=== PATIENT | female | born 1955 | race Caucasian/White ===

== ENCOUNTER 2017-02-25 12:38 | Emergency (ER) | payer SELFPAY, OTHER | END 2017-02-25 15:00 | disposition left against medical advice (07) | LOC: E/R 15:00 | DX: Z53.21 Procedure and treatment not carried out due to patient leaving prior to being seen by health care provider (principal) ==

== ENCOUNTER 2017-04-16 18:07 | Inpatient (IN) | payer OTHER ==
[2017-04-16 22:21] LABS: WHITE BLOOD COUNT 7.2 10^3/ul (4.8-10.8)
[2017-04-16 22:21] LABS: ABNORMAL IP MESSAGE 1; HEMATOCRIT 38.1 % (37.0-47.0); HEMOGLOBIN 12.2 g/dl (12.0-16.0); MEAN CORPUSCULAR VOLUME 90.5 fl (82.0-101.0); NUCLEATED RED BLOOD CELLS% 0.3 /100WBC (0.0-0.0); PLATELET COUNT 287 10^3/UL (140-415); RED BLOOD COUNT 4.21 10^6/ul (4.20-5.40); RED CELL DISTRIBUTION WIDTH 17.3 % (11.5-14.5)
[2017-04-16 22:27] LABS: ADD MAN DIFF? YES; POSITIVE DIFF @See below
[2017-04-16 22:41] LABS: INR 1.25; PROTIME 15.9 Sec (11.9-14.9); PT RATIO 1.2
[2017-04-16 22:42] LABS: PARTIAL THROMBOPLASTIN TIME 44.7 Sec (25.0-35.0)
[2017-04-16 22:57] LABS: ALANINE AMINOTRANSFERASE 7 IU/L (13-69); ALBUMIN 3.4 g/dl (3.3-4.9); ALBUMIN/GLOBULIN RATIO 0.69; ALKALINE PHOSPHATASE 136 IU/L (42-121); ANION GAP 22 (8-16); ASPARTATE AMINO TRANSFERASE 22 IU/L (15-46); BLOOD UREA NITROGEN 44 mg/dl (7-20); CALCIUM 9.4 mg/dl (8.4-10.2); CARBON DIOXIDE 24 mmol/L (21-31); CHLORIDE 100 mmol/L (97-110); CREATININE 6.27 mg/dl (0.44-1.00); GLUCOSE 126 mg/dl (70-220); POTASSIUM 4.5 mmol/L (3.5-5.1); SODIUM 141 mmol/L (135-144); TOTAL PROTEIN 8.3 g/dl (6.1-8.1)
[2017-04-16 23:12] LABS: ANISOCYTOSIS 2+ (0-0); GIANT THROMBO% (M) 1 % (0-0); LYMPHOCYTES #M 4.4 10^3/ul (0.8-2.9); LYMPHOCYTES % (M) 62 % (15-51); MONOCYTE #M 1.6 10^3/ul (0.3-0.9); MONOCYTES % (M) 23 % (0-11); PLATELET MORPHOLOGY COMMENT @See below; REACTIVE LYMPHOCYTES #M 0.7 10^3/ul (0.0-0.0); REACTIVE LYMPHOCYTES% (M) 11 % (0-0); SEGMENTED NEUTROPHILS (M) % 4 % (39-77); SMUDGE%M 8 % (0-0)
[2017-04-17 00:56] LABS: LACTIC ACID 1.6 mmol/L (0.5-2.0)
[2017-04-17] MEDS: CEFEPIME 2GM/50 ML (PMX) 50 ML IVPB (01:16)
[2017-04-17] MEDS: SODIUM CHLORIDE 0.9% 1L BAG IV* (01:24)
[2017-04-17] MEDS: VANCOMYCIN 1 GM (PMX) 250 ML IVPB (01:59)
[2017-04-17] MEDS ORDERED: NACL 0.9% 3 ML SYG IV (02:30)
[2017-04-17] MEDS ORDERED: ACETAMINOPHEN 325 MG TAB PO (02:30)
[2017-04-17] MEDS ORDERED: ALBUTEROL/IPRATROPIUM (NEB) 3 ML AMP HHN (02:30)
[2017-04-17] MEDS: HYDROCODONE/APAP (5/325) TAB PO (03:22)
[2017-04-17] MEDS: ONDANSETRON 4 MG INJ IV (03:22)
[2017-04-17] MEDS: morphine 2 MG INJ IV (03:23)
[2017-04-17] MEDS ORDERED: PANTOPRAZOLE (EC) 40 MG TAB PO (06:00)
[2017-04-17] MEDS ORDERED: FOLIC ACID 1 MG TAB PO (09:00)
[2017-04-17] MEDS ORDERED: CEFEPIME 1GM/50 ML (PMX) 50 ML IVPB (09:00)
[2017-04-17] MEDS ORDERED: NON-FORMULARY/PATIENT OWN MED (Omeprazole* 20 MG) PO (09:00)
[2017-04-17] MEDS ORDERED: VANCOMYCIN IV PER PHARMACY XX (09:00)
[2017-04-17] MEDS ORDERED: MAGNESIUM OXIDE 400 MG TAB PO (09:00)
[2017-04-17] MEDS ORDERED: MULTIVITAMINS THERAPEUTIC TAB PO (09:00)
[2017-04-17] MEDS ORDERED: ESCITALOPRAM 10 MG TAB PO (09:00)
[2017-04-17] MEDS ORDERED: FERROUS SULFATE (EC) 325 MG TAB PO (09:00)
[2017-04-17] MEDS ORDERED: HEPARIN 5,000 UNIT/0.5 ML VIAL SC (09:00)
[2017-04-17] MEDS ORDERED: METOPROLOL 25 MG TAB PO (09:00)
== END 2017-04-17 03:45 | disposition left against medical advice (07) | DRG 603 ==
LOC: E/R 04-17 03:45 → MS1 04-17 02:06 → E/R 18:07
DX: L08.9 Local infection of the skin and subcutaneous tissue, unspecified (principal); I50.9 Heart failure, unspecified; F17.200 Nicotine dependence, unspecified, uncomplicated; N18.9 Chronic kidney disease, unspecified; G89.4 Chronic pain syndrome
CPT/HCPCS: 71045; 80053; 83605; 84484; 85025; 85610; 85730; 87040; 93005; 96374; 96375; 99291-25

== ENCOUNTER 2017-07-26 07:51 | Inpatient (IN) | payer MEDICARE, OTHER ==
[~2017-07-26 07:51] MED LIST: ETOMIDATE 20 MG INJ; SUCCINYLCHOLINE CHLORIDE 100 MG/5 ML SYG IV; VECURONIUM 10 MG VIAL
[2017-07-26] MEDS ORDERED: SOD CHLORIDE 0.9% 1,000 ML IV (08:08)
[2017-07-26] MEDS: MIDAZOLAM (DRIP) 50 mg/50 mL 50 ML IV (08:08)
[2017-07-26] MEDS ORDERED: LORAZEPAM 2 MG INJ (08:19)
[2017-07-26 09:20] LABS: ADD MAN DIFF? NO
[2017-07-26 09:31] LABS: ADD UMIC YES; UR ASCORBIC ACID NEGATIVE (NEGATIVE); UR BACTERIA FEW /HPF (NONE SEEN); UR BILIRUBIN (Dip) NEGATIVE (NEGATIVE); UR BLOOD (Dip) 2+ mg/dL (NEGATIVE); UR CLARITY CLOUDY (CLEAR); UR COLOR YELLOW (YELLOW); UR GLUCOSE (Dip) NEGATIVE (NEGATIVE); UR KETONES (Dip) TRACE mg/dL (NEGATIVE); UR LEUKOCYTE ESTERASE (Dip) 3+ Leu/ul (NEGATIVE); UR NITRITE (Dip) NEGATIVE (NEGATIVE); UR RBC 3 /HPF (0-5); UR SQUAMOUS EPITHELIAL CELL FEW /HPF (FEW); UR TOTAL PROTEIN (Dip) 2+ mg/dl (NEGATIVE); UR UROBILINOGEN (Dip) NEGATIVE (NEGATIVE); UR WBC 96 /HPF (0-5)
[2017-07-26] MEDS: CEFTRIAXONE 1 GM/50 ML (PMX) 50 ML IVPB (09:33)
[2017-07-26 09:43] LABS: ALANINE AMINOTRANSFERASE 24 IU/L (13-69); ALBUMIN 3.8 g/dl (3.3-4.9); ALBUMIN/GLOBULIN RATIO 0.77; ALKALINE PHOSPHATASE 152 IU/L (42-121); ANION GAP 25 (8-16); ASPARTATE AMINO TRANSFERASE 86 IU/L (15-46); BLOOD UREA NITROGEN 45 mg/dl (7-20); CALCIUM 8.6 mg/dl (8.4-10.2); CARBON DIOXIDE 25 mmol/L (21-31); CHLORIDE 102 mmol/L (97-110); CREATININE 8.55 mg/dl (0.44-1.00); GLUCOSE 168 mg/dl (70-220); LIPASE 289 U/L (23-300); POTASSIUM 4.6 mmol/L (3.5-5.1); SODIUM 147 mmol/L (135-144); TOTAL PROTEIN 8.7 g/dl (6.1-8.1)
[2017-07-26 09:51] LABS: AADO2 Arterial 372.6 mmHg (7.0-24.0); Allen Test ACCEPTAB; Arterial Base Excess -3.5 mmol/L (-3.0-3); Arterial Blood Gas Oxygen Sat 99.3 mmHG (95.0-98.0); Arterial COHb 0.2 % (0.0-3.0); Arterial HCO3 22.4 mmol/L (22.0-26.0); Arterial MetHb 0.1 % (0.0-1.5); Arterial pCO2 43.2 mmhg (35-45); MODE VENT - AC; Site LB
[2017-07-26 09:53] LABS: TROPONIN-I 0.074 ng/ml (0.000-0.120)
[2017-07-26 10:54] LABS: ABNORMAL IP MESSAGE 1; BASOPHILS % 0.9 % (0.0-2.0); HEMATOCRIT 37.6 % (37.0-47.0); LYMPHOCYTES # 0.5 10^3/ul (0.8-2.9); LYMPHOCYTES % 14.9 % (15.0-51.0); MEAN CORPUSCULAR HGB CONC 31.9 g/dl (32.0-37.0); MEAN CORPUSCULAR VOLUME 87.6 fl (82.0-101.0); MEAN PLATELET VOLUME 11.6 fl (7.4-10.4); MONOCYTE # 0.7 10^3/ul (0.3-0.9); MONOCYTES % 21.3 % (0.0-11.0); NEUTROPHIL # 2.1 10^3/ul (1.6-7.5); NEUTROPHILS % 62.6 % (39.0-77.0); PLATELET COUNT 301 10^3/UL (140-415); POSITIVE DIFF @See below; RED BLOOD COUNT 4.29 10^6/ul (4.20-5.40)
[2017-07-26 10:54] LABS: WHITE BLOOD COUNT 3.3 10^3/ul (4.8-10.8)
[2017-07-26] MEDS: DEXTROSE 5%-0.45% NACL 1,000 ML IV (12:10)
[2017-07-26] MEDS ORDERED: VANCOMYCIN IV PER PHARMACY XX (12:30)
[2017-07-26] MEDS ORDERED: ACETAMINOPHEN 325 MG TAB PO (12:30)
[2017-07-26] MEDS ORDERED: BISACODYL (EC) 5 MG TAB PO (12:30)
[2017-07-26] MEDS ORDERED: LORAZEPAM 2 MG INJ IV (12:30)
[2017-07-26] MEDS ORDERED: NACL 0.9% 3 ML SYG IV (12:30)
[2017-07-26] MEDS ORDERED: LEVOFLOXACIN 500MG/D5W (PMX) 100 ML IVPB (12:30)
[2017-07-26] MEDS ORDERED: HYDROCODONE/APAP (5/325) TAB PO (12:30)
[2017-07-26] MEDS ORDERED: MAGNESIUM HYDROXIDE 30ML CUP PO (12:30)
[2017-07-26] MEDS ORDERED: morphine 2 MG INJ IV ×2 (12:30→16:30)
[2017-07-26] MEDS ORDERED: ONDANSETRON 4 MG INJ IV (12:30)
[2017-07-26] MEDS ORDERED: DOCUSATE SODIUM 100 MG CAP PO (12:30)
[2017-07-26] MEDS: NACL 3% FOR INHALATION 15 ML NEBU NEB (12:30)
[2017-07-26] MEDS: PIPER-TAZO 2.25 GM (PMX) 50 ML IVPB (15:08)
[2017-07-26] MEDS: VANCOMYCIN 1 GM 250 ML IVPB (15:52)
[2017-07-26] MEDS ORDERED: MIDAZOLAM (DRIP) 50 mg/50 mL 50 ML IV (16:00)
[2017-07-26] MEDS: PROPOFOL 100 ML IV (16:45)
[2017-07-26] MEDS ORDERED: PIPER-TAZO 3.375 GM IV (PMX) 100 ML IVPB (18:00)
[2017-07-26 18:17] LABS: HEPATITIS B SURFACE ANTIGEN NEGATIVE (NEGATIVE)
[2017-07-26] MEDS: METOPROLOL 25 MG TAB PO (21:00)
[2017-07-27] MEDS: ALBUMIN HUMAN 25% 100 ML IV (00:49)
[2017-07-27] MEDS: HEPARIN 1000 UNITS/ML 10 ML INJ CATHETER ×2 (02:02→21:10)
[2017-07-27] MEDS: PIPER-TAZO 2.25 GM (PMX) 50 ML IVPB ×4 (02:13→22:21)
[2017-07-27] MEDS: PANTOPRAZOLE 40 MG INJ IV (05:42)
[2017-07-27 05:50] LABS: ABNORMAL IP MESSAGE 1; HEMATOCRIT 32.8 % (37.0-47.0); HEMOGLOBIN 10.8 g/dl (12.0-16.0); MEAN CORPUSCULAR HGB CONC 32.9 g/dl (32.0-37.0); MEAN CORPUSCULAR VOLUME 88.2 fl (82.0-101.0); MEAN PLATELET VOLUME 11.5 fl (7.4-10.4); PLATELET COUNT 215 10^3/UL (140-415); RED BLOOD COUNT 3.72 10^6/ul (4.20-5.40); RED CELL DISTRIBUTION WIDTH 18.6 % (11.5-14.5)
[2017-07-27 05:50] LABS: WHITE BLOOD COUNT 2.5 10^3/ul (4.8-10.8)
[2017-07-27 06:19] LABS: ALANINE AMINOTRANSFERASE 24 IU/L (13-69); ALBUMIN 3.8 g/dl (3.3-4.9); ALBUMIN/GLOBULIN RATIO 0.82; ALKALINE PHOSPHATASE 141 IU/L (42-121); ANION GAP 16 (8-16); ASPARTATE AMINO TRANSFERASE 63 IU/L (15-46); BILIRUBIN,INDIRECT 0.5 mg/dl (0-1.1); BILIRUBIN,TOTAL 0.5 mg/dl (0.2-1.3); BLOOD UREA NITROGEN 17 mg/dl (7-20); CALCIUM 8.9 mg/dl (8.4-10.2); CARBON DIOXIDE 29 mmol/L (21-31); CHLORIDE 102 mmol/L (97-110); CREATININE 3.96 mg/dl (0.44-1.00); MAGNESIUM 1.6 mg/dl (1.7-2.5); POTASSIUM 4.6 mmol/L (3.5-5.1); SODIUM 142 mmol/L (135-144); TOTAL PROTEIN 8.4 g/dl (6.1-8.1)
[2017-07-27 06:25] LABS: GLUCOSE 22 mg/dl (70-220)
[2017-07-27 06:27] LABS: POSITIVE DIFF @See below
[2017-07-27 06:28] LABS: ADD MAN DIFF? YES
[2017-07-27] MEDS ORDERED: DEXTROSE 50% 50 ML SYRINGE (06:34)
[2017-07-27] MEDS: DEXTROSE 50% 50 ML SYRINGE IV ×2 (06:45→10:17)
[2017-07-27] MEDS ORDERED: GLUCAGON 1 MG INJ IM (07:00)
[2017-07-27] MEDS ORDERED: DEXTROSE 50% 50 ML SYRINGE IV (07:00)
[2017-07-27] MEDS ORDERED: GLUCOSE GEL 15 GRAM TUBE PO ×2 (07:00)
[2017-07-27] MEDS ORDERED: GLUCOSE GEL 15 GRAM TUBE BUCCAL (07:00)
[2017-07-27] MEDS: DEXTROSE 5% 1,000 ML IV (07:49)
[2017-07-27] MEDS: METOPROLOL 25 MG TAB PO ×2 (09:00→21:00)
[2017-07-27] MEDS: ACCU-CHEK XX ×13 (09:27→23:42)
[2017-07-27] MEDS: MAGNESIUM SULFATE 2 GM/50 ML 50 ML IVPB (10:08)
[2017-07-27 10:12] LABS: ANISOCYTOSIS 3+ (0-0); BAND NEUTROPHILS #M 0.1 10^3/ul (0.0-0.6); BAND NEUTROPHILS % (M) 6 % (0-4); BASOPHILS % (M) 3 % (0-2); GIANT THROMBO% (M) 7 % (0-0); LYMPHOCYTES #M 1.1 10^3/ul (0.8-2.9); LYMPHOCYTES % (M) 47 % (15-51); MONOCYTE #M 0.6 10^3/ul (0.3-0.9); MONOCYTES % (M) 24 % (0-11); MYELOCYTES % (M) 1 % (0-0); PLATELET ESTIMATE NORMAL; POIKILOCYTOSIS 2+ (0-0); POLYCHROMASIA 3+ (0-0); PROMYELOCYTES % (M) 1 % (0-0); REACTIVE LYMPHOCYTES% (M) 1 % (0-0); SEG NEUT #M 0.4 10^3/ul (1.6-7.5); SEGMENTED NEUTROPHILS (M) % 17 % (39-77); SMUDGE%M 6 % (0-0)
[2017-07-27 10:41] LABS: AADO2 Arterial 74.8 mmHg (7.0-24.0); Allen Test ACCEPTAB; Arterial Base Excess 1.8 mmol/L (-3.0-3); Arterial Blood Gas Oxygen Sat 98.4 mmHG (95.0-98.0); Arterial COHb 0.7 % (0.0-3.0); Arterial Fraction of Oxyhgb 97.7 % (93.0-99.0); Arterial HCO3 26.5 mmol/L (22.0-26.0); Arterial MetHb 0 % (0.0-1.5); Arterial Total Hemglobin 12.2 g/dl (12.0-18.0); Arterial pCO2 41.8 mmhg (35-45); Blood Gas PS 10; MODE VENT - CPAP; Site Right Radial
[2017-07-27] MEDS: DEXTROSE 10% 1,000 ML IV (11:04)
[2017-07-27 12:00] LABS: HEMOGLOBIN A1C 5.1 % (0-5.9)
[2017-07-28] MEDS: ACCU-CHEK XX ×12 (01:27→23:29)
[2017-07-28 05:12] LABS: ADD MAN DIFF? NO
[2017-07-28 05:17] LABS: BASOPHIL # 0.1 10^3/ul (0.0-0.1); BASOPHILS % 1.4 % (0.0-2.0); EOSINOPHILS % 0.2 % (0.0-7.0); HEMATOCRIT 32.3 % (37.0-47.0); HEMOGLOBIN 10.4 g/dl (12.0-16.0); LYMPHOCYTES # 1.8 10^3/ul (0.8-2.9); LYMPHOCYTES % 40.9 % (15.0-51.0); MEAN CORPUSCULAR HEMOGLOBIN 29.1 pg (29.0-33.0); MEAN CORPUSCULAR HGB CONC 32.2 g/dl (32.0-37.0); MEAN CORPUSCULAR VOLUME 90.5 fl (82.0-101.0); MEAN PLATELET VOLUME 11.6 fl (7.4-10.4); MONOCYTES % 22.4 % (0.0-11.0); NEUTROPHIL # 1.5 10^3/ul (1.6-7.5); NEUTROPHILS % 34.6 % (39.0-77.0); PLATELET COUNT 192 10^3/UL (140-415); RED BLOOD COUNT 3.57 10^6/ul (4.20-5.40); RED CELL DISTRIBUTION WIDTH 18.9 % (11.5-14.5)
[2017-07-28 05:17] LABS: WHITE BLOOD COUNT 4.4 10^3/ul (4.8-10.8)
[2017-07-28 05:41] LABS: ANION GAP 8 (8-16); BLOOD UREA NITROGEN 10 mg/dl (7-20); CALCIUM 8.9 mg/dl (8.4-10.2); CARBON DIOXIDE 32 mmol/L (21-31); CHLORIDE 103 mmol/L (97-110); CREATININE 2.89 mg/dl (0.44-1.00); GLUCOSE 110 mg/dl (70-220); PHOSPHORUS 3.5 mg/dl (2.5-4.9); POTASSIUM 4.2 mmol/L (3.5-5.1); SODIUM 139 mmol/L (135-144)
[2017-07-28 05:46] LABS: VANCOMYCIN,RANDOM 8.8 ug/ml
[2017-07-28] MEDS: PANTOPRAZOLE 40 MG INJ IV (06:10)
[2017-07-28] MEDS: PIPER-TAZO 2.25 GM (PMX) 50 ML IVPB ×3 (06:10→22:11)
[2017-07-28] MEDS: METOPROLOL 25 MG TAB PO ×2 (09:00→20:44)
[2017-07-28] MEDS: HEPARIN 1000 UNITS/ML 10 ML INJ CATHETER (13:29)
[2017-07-28] MEDS: COSYNTROPIN 0.25 MG INJ IV (13:38)
[2017-07-28] MEDS: VANCOMYCIN 1 GM 250 ML IVPB (14:24)
[2017-07-28] MEDS: DEXTROSE 10% 1,000 ML IV (14:50)
[2017-07-28 15:03] LABS: INR 1.01; PROTIME 13.4 Sec (11.9-14.9)
[2017-07-28 15:04] LABS: PARTIAL THROMBOPLASTIN TIME 28.3 Sec (25.0-35.0)
[2017-07-29] MEDS: ACCU-CHEK XX ×12 (01:53→23:14)
[2017-07-29 05:08] LABS: ADD MAN DIFF? NO
[2017-07-29 05:12] LABS: BASOPHIL # 0.1 10^3/ul (0.0-0.1); EOSINOPHILS % 0.6 % (0.0-7.0); HEMATOCRIT 30.4 % (37.0-47.0); HEMOGLOBIN 9.7 g/dl (12.0-16.0); LYMPHOCYTES # 2.4 10^3/ul (0.8-2.9); LYMPHOCYTES % 46.4 % (15.0-51.0); MEAN CORPUSCULAR HEMOGLOBIN 28.9 pg (29.0-33.0); MEAN CORPUSCULAR HGB CONC 31.9 g/dl (32.0-37.0); MEAN CORPUSCULAR VOLUME 90.5 fl (82.0-101.0); MEAN PLATELET VOLUME 11.2 fl (7.4-10.4); MONOCYTE # 0.8 10^3/ul (0.3-0.9); NEUTROPHIL # 1.9 10^3/ul (1.6-7.5); NEUTROPHILS % 35.6 % (39.0-77.0); PLATELET COUNT 204 10^3/UL (140-415); RED BLOOD COUNT 3.36 10^6/ul (4.20-5.40); RED CELL DISTRIBUTION WIDTH 18.9 % (11.5-14.5)
[2017-07-29 05:12] LABS: WHITE BLOOD COUNT 5.2 10^3/ul (4.8-10.8)
[2017-07-29] MEDS: PIPER-TAZO 2.25 GM (PMX) 50 ML IVPB ×3 (05:19→21:00)
[2017-07-29] MEDS: PANTOPRAZOLE 40 MG INJ IV (05:19)
[2017-07-29 05:39] LABS: ANION GAP 7 (8-16); BLOOD UREA NITROGEN 11 mg/dl (7-20); CALCIUM 8.9 mg/dl (8.4-10.2); CARBON DIOXIDE 31 mmol/L (21-31); CHLORIDE 104 mmol/L (97-110); CREATININE 2.77 mg/dl (0.44-1.00); GLUCOSE 97 mg/dl (70-220); MAGNESIUM 1.8 mg/dl (1.7-2.5); PHOSPHORUS 3.7 mg/dl (2.5-4.9); POTASSIUM 3.7 mmol/L (3.5-5.1); SODIUM 138 mmol/L (135-144)
[2017-07-29] MEDS: METOPROLOL 25 MG TAB PO ×2 (09:00→21:00)
[2017-07-29] MEDS: DEXTROSE 10% 1,000 ML IV (13:00)
[2017-07-29] MEDS ORDERED: morphine LIQ (10 MG/5 ML) CUP PO (23:00)
[2017-07-30] MEDS: ACCU-CHEK XX ×9 (01:00→21:00)
[2017-07-30] MEDS: DEXTROSE 10% 1,000 ML IV (01:48)
[2017-07-30 05:10] LABS: ADD MAN DIFF? NO
[2017-07-30 05:20] LABS: BASOPHIL # 0.1 10^3/ul (0.0-0.1); BASOPHILS % 1.2 % (0.0-2.0); EOSINOPHILS % 0.2 % (0.0-7.0); HEMATOCRIT 32.9 % (37.0-47.0); HEMOGLOBIN 10.4 g/dl (12.0-16.0); LYMPHOCYTES # 2.1 10^3/ul (0.8-2.9); LYMPHOCYTES % 36.7 % (15.0-51.0); MEAN CORPUSCULAR HEMOGLOBIN 28.8 pg (29.0-33.0); MEAN CORPUSCULAR HGB CONC 31.6 g/dl (32.0-37.0); MEAN CORPUSCULAR VOLUME 91.1 fl (82.0-101.0); MEAN PLATELET VOLUME 11.6 fl (7.4-10.4); MONOCYTE # 0.7 10^3/ul (0.3-0.9); MONOCYTES % 12.6 % (0.0-11.0); NEUTROPHIL # 2.7 10^3/ul (1.6-7.5); NEUTROPHILS % 48.4 % (39.0-77.0); PLATELET COUNT 238 10^3/UL (140-415); RED BLOOD COUNT 3.61 10^6/ul (4.20-5.40); RED CELL DISTRIBUTION WIDTH 18.7 % (11.5-14.5)
[2017-07-30 05:20] LABS: WHITE BLOOD COUNT 5.6 10^3/ul (4.8-10.8)
[2017-07-30] MEDS: PIPER-TAZO 2.25 GM (PMX) 50 ML IVPB ×3 (05:28→23:25)
[2017-07-30] MEDS: PANTOPRAZOLE 40 MG INJ IV (05:28)
[2017-07-30 05:49] LABS: ALBUMIN 3.1 g/dl (3.3-4.9); ANION GAP 14 (8-16); BLOOD UREA NITROGEN 27 mg/dl (7-20); CALCIUM 8.8 mg/dl (8.4-10.2); CARBON DIOXIDE 28 mmol/L (21-31); CHLORIDE 104 mmol/L (97-110); CREATININE 4.84 mg/dl (0.44-1.00); GLUCOSE 77 mg/dl (70-220); MAGNESIUM 1.7 mg/dl (1.7-2.5); PHOSPHORUS 4.2 mg/dl (2.5-4.9); SODIUM 142 mmol/L (135-144)
[2017-07-30] MEDS: METOPROLOL 25 MG TAB PO ×2 (09:00→21:21)
[2017-07-30] MEDS: HEPARIN 1000 UNITS/ML 10 ML INJ CATHETER (13:24)
[2017-07-31] MEDS: ACCU-CHEK XX ×6 (01:00→21:54)
[2017-07-31] MEDS: PANTOPRAZOLE 40 MG INJ IV (07:24)
[2017-07-31] MEDS: PIPER-TAZO 2.25 GM (PMX) 50 ML IVPB ×2 (07:24→13:47)
[2017-07-31 07:26] LABS: ADD MAN DIFF? NO
[2017-07-31 07:28] LABS: WHITE BLOOD COUNT 6.1 10^3/ul (4.8-10.8)
[2017-07-31 07:28] LABS: BASOPHIL # 0.1 10^3/ul (0.0-0.1); EOSINOPHILS % 0.2 % (0.0-7.0); HEMATOCRIT 35.6 % (37.0-47.0); HEMOGLOBIN 11.3 g/dl (12.0-16.0); LYMPHOCYTES # 2.1 10^3/ul (0.8-2.9); LYMPHOCYTES % 34.9 % (15.0-51.0); MEAN CORPUSCULAR HEMOGLOBIN 28.8 pg (29.0-33.0); MEAN CORPUSCULAR HGB CONC 31.7 g/dl (32.0-37.0); MEAN CORPUSCULAR VOLUME 90.8 fl (82.0-101.0); MEAN PLATELET VOLUME 10.6 fl (7.4-10.4); MONOCYTES % 16.3 % (0.0-11.0); NEUTROPHIL # 2.8 10^3/ul (1.6-7.5); NEUTROPHILS % 46.4 % (39.0-77.0); PLATELET COUNT 225 10^3/UL (140-415); RED BLOOD COUNT 3.92 10^6/ul (4.20-5.40)
[2017-07-31 07:52] LABS: ALBUMIN 3.3 g/dl (3.3-4.9); ANION GAP 12 (8-16); BLOOD UREA NITROGEN 27 mg/dl (7-20); CARBON DIOXIDE 27 mmol/L (21-31); CHLORIDE 104 mmol/L (97-110); CREATININE 4.22 mg/dl (0.44-1.00); GLUCOSE 87 mg/dl (70-220); MAGNESIUM 1.7 mg/dl (1.7-2.5); PHOSPHORUS 3.9 mg/dl (2.5-4.9); POTASSIUM 4.8 mmol/L (3.5-5.1); SODIUM 138 mmol/L (135-144)
[2017-07-31] MEDS: METOPROLOL 25 MG TAB PO ×2 (08:22→21:54)
[2017-07-31 12:52] LABS: HEPATITIS B SURFACE ANTIGEN NEGATIVE (NEGATIVE)
[2017-07-31 16:47] LABS: IGF BINDING GLOBULIN 2.9 mg/L (3.0-6.6)
[2017-07-31] MEDS: BALSAM PERU/CASTOR OIL 60 GM TUBE TOP (21:50)
[2017-08-01] MEDS: ACCU-CHEK XX ×6 (01:52→21:48)
[2017-08-01] MEDS: PANTOPRAZOLE 40 MG INJ IV (05:31)
[2017-08-01 07:51] LABS: ADD MAN DIFF? NO
[2017-08-01 08:00] LABS: BASOPHIL # 0.1 10^3/ul (0.0-0.1); BASOPHILS % 1.1 % (0.0-2.0); EOSINOPHILS % 0.2 % (0.0-7.0); HEMATOCRIT 33.4 % (37.0-47.0); HEMOGLOBIN 10.6 g/dl (12.0-16.0); LYMPHOCYTES # 2.4 10^3/ul (0.8-2.9); LYMPHOCYTES % 38.8 % (15.0-51.0); MEAN CORPUSCULAR HEMOGLOBIN 28.6 pg (29.0-33.0); MEAN CORPUSCULAR HGB CONC 31.7 g/dl (32.0-37.0); MEAN PLATELET VOLUME 12.1 fl (7.4-10.4); MONOCYTE # 1.2 10^3/ul (0.3-0.9); MONOCYTES % 19.2 % (0.0-11.0); NEUTROPHIL # 2.5 10^3/ul (1.6-7.5); NEUTROPHILS % 39.6 % (39.0-77.0); PLATELET COUNT 250 10^3/UL (140-415); RED BLOOD COUNT 3.71 10^6/ul (4.20-5.40); RED CELL DISTRIBUTION WIDTH 18.4 % (11.5-14.5)
[2017-08-01 08:00] LABS: WHITE BLOOD COUNT 6.2 10^3/ul (4.8-10.8)
[2017-08-01 08:20] LABS: ALBUMIN 3.2 g/dl (3.3-4.9); ANION GAP 16 (8-16); BLOOD UREA NITROGEN 44 mg/dl (7-20); CALCIUM 8.8 mg/dl (8.4-10.2); CARBON DIOXIDE 25 mmol/L (21-31); CHLORIDE 102 mmol/L (97-110); CREATININE 6.26 mg/dl (0.44-1.00); GLUCOSE 90 mg/dl (70-220); MAGNESIUM 1.6 mg/dl (1.7-2.5); PHOSPHORUS 4.5 mg/dl (2.5-4.9); POTASSIUM 4.6 mmol/L (3.5-5.1); SODIUM 138 mmol/L (135-144)
[2017-08-01] MEDS: METOPROLOL 25 MG TAB PO ×2 (09:04→20:29)
[2017-08-01] MEDS: BALSAM PERU/CASTOR OIL 60 GM TUBE TOP ×2 (09:05→20:29)
[2017-08-01] MEDS: HEPARIN 1000 UNITS/ML 10 ML INJ CATHETER (15:41)
[2017-08-02] MEDS: ACCU-CHEK XX ×3 (01:00→08:08)
[2017-08-02] MEDS: PANTOPRAZOLE 40 MG INJ IV (06:23)
[2017-08-02] MEDS: BALSAM PERU/CASTOR OIL 60 GM TUBE TOP (09:29)
[2017-08-02] MEDS: METOPROLOL 25 MG TAB PO (09:29)
== END 2017-08-02 16:20 | disposition home health service (06) | DRG 871 ==
LOC: TEL 07-30 20:07 → E/R 07:51 → ICU 11:19
PROVIDERS: Internal Medicine
PROC: 5A1945Z Respiratory Ventilation, 24-96 Consecutive Hours (ICD-10-PCS; principal; 2017-07-26)
PROC: 0BH17EZ Insertion of Endotracheal Airway into Trachea, Via Natural or Artificial Opening (ICD-10-PCS; 2017-07-26)
PROC: 06HN33Z Insertion of Infusion Device into Left Femoral Vein, Percutaneous Approach (ICD-10-PCS; 2017-07-26)
PROC: 5A1D70Z Performance of Urinary Filtration, Intermittent, Less than 6 Hours Per Day (ICD-10-PCS; 2017-07-26)
DX: A41.9 Sepsis, unspecified organism (principal); J96.01 Acute respiratory failure with hypoxia; N18.6 End stage renal disease; G92 Toxic encephalopathy; J69.0 Pneumonitis due to inhalation of food and vomit; N39.0 Urinary tract infection, site not specified; I13.2 Hypertensive heart and chronic kidney disease with heart failure and with stage 5 chronic kidney disease, or end stage renal disease; Z99.11 Dependence on respirator [ventilator] status; R65.20 Severe sepsis without septic shock; D63.1 Anemia in chronic kidney disease; E16.2 Hypoglycemia, unspecified; F41.9 Anxiety disorder, unspecified; F32.9 Major depressive disorder, single episode, unspecified; F11.229 Opioid dependence with intoxication, unspecified; G89.4 Chronic pain syndrome; I50.9 Heart failure, unspecified; J44.9 Chronic obstructive pulmonary disease, unspecified; K21.9 Gastro-esophageal reflux disease without esophagitis; M06.9 Rheumatoid arthritis, unspecified; Z99.2 Dependence on renal dialysis; Z86.19 Personal history of other infectious and parasitic diseases
CPT/HCPCS: 31500; 36415; 36600; 70450; 71045; 80048; 80053; 80069; 80202; 81001; 82533; 82803; 82962; 83036; 83520; 83690; 83735; 84100; 84443; 84484; 85025; 85610; 85730; 86850; 86900; 86901; 87040; 87070; 87081; 87086; 87340; 89220; 90935; 93005; 93306; 93926; 94002; 94003; 94770; 96365; 96366; 97110; 97162; 97167; 97530; 97535; 99291-25

== ENCOUNTER 2017-09-24 18:31 | Inpatient (IN) | payer MEDICARE, OTHER ==
[2017-09-24 23:04] LABS: ADD MAN DIFF? NO
[2017-09-24 23:07] LABS: BASOPHILS % 0.7 % (0.0-2.0); EOSINOPHILS % 0.2 % (0.0-7.0); HEMATOCRIT 36.2 % (37.0-47.0); HEMOGLOBIN 12.1 g/dl (12.0-16.0); LYMPHOCYTES # 2.2 10^3/ul (0.8-2.9); LYMPHOCYTES % 41.6 % (15.0-51.0); MEAN CORPUSCULAR HEMOGLOBIN 31.8 pg (29.0-33.0); MEAN CORPUSCULAR HGB CONC 33.4 g/dl (32.0-37.0); MEAN PLATELET VOLUME 11.6 fl (7.4-10.4); MONOCYTE # 1.3 10^3/ul (0.3-0.9); MONOCYTES % 23.4 % (0.0-11.0); NEUTROPHIL # 1.8 10^3/ul (1.6-7.5); NEUTROPHILS % 33.9 % (39.0-77.0); PLATELET COUNT 199 10^3/UL (140-415); RED BLOOD COUNT 3.81 10^6/ul (4.20-5.40); RED CELL DISTRIBUTION WIDTH 15.2 % (11.5-14.5)
[2017-09-24 23:07] LABS: WHITE BLOOD COUNT 5.4 10^3/ul (4.8-10.8)
[2017-09-24] MEDS: SODIUM CHLORIDE 0.9% 1L BAG IV* (23:13)
[2017-09-24 23:25] LABS: INR 0.87; PROTIME 11.9 Sec (11.9-14.9); PT RATIO 0.9
[2017-09-24 23:26] LABS: LACTIC ACID 1.2 mmol/L (0.5-2.0)
[2017-09-24 23:26] LABS: PARTIAL THROMBOPLASTIN TIME 24.8 Sec (25.0-35.0)
[2017-09-24 23:27] LABS: ALBUMIN 3.8 g/dl (3.3-4.9); ALBUMIN/GLOBULIN RATIO 0.95; ALKALINE PHOSPHATASE 170 IU/L (42-121); ANION GAP 18 (8-16); ASPARTATE AMINO TRANSFERASE 18 IU/L (15-46); BLOOD UREA NITROGEN 54 mg/dl (7-20); CALCIUM 8.4 mg/dl (8.4-10.2); CARBON DIOXIDE 25 mmol/L (21-31); CHLORIDE 95 mmol/L (97-110); CREATININE 6.46 mg/dl (0.44-1.00); GLUCOSE 112 mg/dl (70-220); POTASSIUM 4.9 mmol/L (3.5-5.1); SODIUM 133 mmol/L (135-144); TOTAL PROTEIN 7.8 g/dl (6.1-8.1)
[2017-09-24 23:39] LABS: ALANINE AMINOTRANSFERASE < 6 IU/L (13-69)
[2017-09-25] MEDS ORDERED: NACL 0.9% 3 ML SYG IV (01:30)
[2017-09-25] MEDS ORDERED: METOCLOPRAMIDE 10 MG INJ IV (01:30)
[2017-09-25] MEDS ORDERED: morphine 2 MG INJ IV (01:30)
[2017-09-25] MEDS ORDERED: ACETAMINOPHEN 325 MG TAB PO (01:30)
[2017-09-25] MEDS ORDERED: VANCOMYCIN IV PER PHARMACY XX (01:30)
[2017-09-25] MEDS: CEFEPIME 2GM/50 ML (PMX) 50 ML IVPB (01:40)
[2017-09-25] MEDS: VANCOMYCIN 1 GM (PMX) 250 ML IVPB (02:45)
[2017-09-25] MEDS: VANCOMYCIN 500MG/NS (PMX) 100 ML IVPB (05:21)
[2017-09-25 05:47] LABS: ADD MAN DIFF? NO
[2017-09-25 06:05] LABS: ABNORMAL IP MESSAGE 1; BASOPHIL # 0.1 10^3/ul (0.0-0.1); BASOPHILS % 1.1 % (0.0-2.0); EOSINOPHILS % 0.3 % (0.0-7.0); HEMATOCRIT 39.7 % (37.0-47.0); HEMOGLOBIN 12.9 g/dl (12.0-16.0); LYMPHOCYTES % 45.6 % (15.0-51.0); MEAN CORPUSCULAR HEMOGLOBIN 31.7 pg (29.0-33.0); MEAN CORPUSCULAR HGB CONC 32.5 g/dl (32.0-37.0); MEAN CORPUSCULAR VOLUME 97.5 fl (82.0-101.0); MEAN PLATELET VOLUME 12.1 fl (7.4-10.4); MONOCYTE # 1.5 10^3/ul (0.3-0.9); MONOCYTES % 22.9 % (0.0-11.0); NEUTROPHIL # 1.9 10^3/ul (1.6-7.5); NEUTROPHILS % 29.3 % (39.0-77.0); PLATELET COUNT 196 10^3/UL (140-415); RED BLOOD COUNT 4.07 10^6/ul (4.20-5.40); RED CELL DISTRIBUTION WIDTH 15.6 % (11.5-14.5)
[2017-09-25 06:05] LABS: WHITE BLOOD COUNT 6.6 10^3/ul (4.8-10.8)
[2017-09-25] MEDS: PANTOPRAZOLE (EC) 40 MG TAB PO (06:15)
[2017-09-25 06:16] LABS: POSITIVE DIFF @See below
[2017-09-25 06:19] LABS: LACTIC ACID 1.4 mmol/L (0.5-2.0)
[2017-09-25 06:39] LABS: ALBUMIN 3.6 g/dl (3.3-4.9); ALBUMIN/GLOBULIN RATIO 0.97; ALKALINE PHOSPHATASE 147 IU/L (42-121); ANION GAP 19 (8-16); ASPARTATE AMINO TRANSFERASE 27 IU/L (15-46); BLOOD UREA NITROGEN 56 mg/dl (7-20); CALCIUM 8.3 mg/dl (8.4-10.2); CARBON DIOXIDE 20 mmol/L (21-31); CHLORIDE 105 mmol/L (97-110); CREATININE 6.34 mg/dl (0.44-1.00); GLUCOSE 96 mg/dl (70-220); MAGNESIUM 1.7 mg/dl (1.7-2.5); SODIUM 138 mmol/L (135-144); TOTAL PROTEIN 7.3 g/dl (6.1-8.1)
[2017-09-25 06:42] LABS: ALANINE AMINOTRANSFERASE < 6 IU/L (13-69)
[2017-09-25] MEDS ORDERED: METOPROLOL 25 MG TAB PO (09:00)
[2017-09-25] MEDS ORDERED: DEXTROSE 50% 50 ML SYRINGE IV (10:00)
[2017-09-25] MEDS: MULTIVITAMINS THERAPEUTIC TAB PO (10:22)
[2017-09-25] MEDS: oxyCODONE 5 MG TAB PO ×3 (10:22→21:42)
[2017-09-25] MEDS: SEVELAMER CARBONATE 0.8 GM PKT PO ×3 (10:22→19:16)
[2017-09-25] MEDS: INSULIN REGULAR, HUMAN 100 UNIT/1 ML 3ML VIAL IVP (10:25)
[2017-09-25] MEDS: NA POLYST SULFON 15 GM/60 ML BTL PO (10:28)
[2017-09-25 18:18] LABS: HEPATITIS B SURFACE ANTIGEN NEGATIVE (NEGATIVE)
[2017-09-25 18:36] LABS: HEPATITIS B SURFACE ANTIBODY POSITIVE (NEGATIVE)
[2017-09-25] MEDS: HEPARIN 1000 UNITS/ML 10 ML INJ CATHETER (21:36)
[2017-09-26] MEDS: PANTOPRAZOLE (EC) 40 MG TAB PO (06:01)
[2017-09-26] MEDS: oxyCODONE 5 MG TAB PO ×2 (06:01→15:45)
[2017-09-26] MEDS: MULTIVITAMINS THERAPEUTIC TAB PO (09:10)
[2017-09-26] MEDS: SEVELAMER CARBONATE 0.8 GM PKT PO ×3 (09:10→18:23)
[2017-09-26 10:23] LABS: ADD MAN DIFF? NO
[2017-09-26 10:31] LABS: WHITE BLOOD COUNT 5.3 10^3/ul (4.8-10.8)
[2017-09-26 10:31] LABS: BASOPHIL # 0.1 10^3/ul (0.0-0.1); BASOPHILS % 0.9 % (0.0-2.0); EOSINOPHILS % 0.2 % (0.0-7.0); HEMATOCRIT 37.6 % (37.0-47.0); HEMOGLOBIN 12.3 g/dl (12.0-16.0); LYMPHOCYTES # 2.5 10^3/ul (0.8-2.9); LYMPHOCYTES % 48.2 % (15.0-51.0); MEAN CORPUSCULAR HEMOGLOBIN 31.4 pg (29.0-33.0); MEAN CORPUSCULAR HGB CONC 32.7 g/dl (32.0-37.0); MEAN CORPUSCULAR VOLUME 95.9 fl (82.0-101.0); MEAN PLATELET VOLUME 11.7 fl (7.4-10.4); MONOCYTE # 1.3 10^3/ul (0.3-0.9); MONOCYTES % 24.7 % (0.0-11.0); NEUTROPHIL # 1.4 10^3/ul (1.6-7.5); NEUTROPHILS % 25.6 % (39.0-77.0); PLATELET COUNT 210 10^3/UL (140-415); RED BLOOD COUNT 3.92 10^6/ul (4.20-5.40); RED CELL DISTRIBUTION WIDTH 15.3 % (11.5-14.5)
[2017-09-26 10:57] LABS: ALBUMIN 3.3 g/dl (3.3-4.9); ANION GAP 13 (8-16); BLOOD UREA NITROGEN 26 mg/dl (7-20); CALCIUM 8.6 mg/dl (8.4-10.2); CARBON DIOXIDE 30 mmol/L (21-31); CHLORIDE 96 mmol/L (97-110); CREATININE 3.63 mg/dl (0.44-1.00); GLUCOSE 65 mg/dl (70-220); MAGNESIUM 1.6 mg/dl (1.7-2.5); POTASSIUM 4.1 mmol/L (3.5-5.1); SODIUM 135 mmol/L (135-144)
[2017-09-26] MEDS ORDERED: METHADONE (1 MG/1 ML PO SYG) PO ×2 (13:00→13:40)
[2017-09-26] MEDS: METHADONE (1 MG/1 ML PO SYG) PO (14:11)
[2017-09-27] MEDS: oxyCODONE 5 MG TAB PO ×3 (00:37→13:04)
[2017-09-27 07:13] LABS: ADD MAN DIFF? NO
[2017-09-27 07:21] LABS: WHITE BLOOD COUNT 5.8 10^3/ul (4.8-10.8)
[2017-09-27 07:21] LABS: BASOPHIL # 0.1 10^3/ul (0.0-0.1); EOSINOPHILS % 0.7 % (0.0-7.0); HEMATOCRIT 37.7 % (37.0-47.0); HEMOGLOBIN 12.2 g/dl (12.0-16.0); LYMPHOCYTES # 3.2 10^3/ul (0.8-2.9); LYMPHOCYTES % 55.9 % (15.0-51.0); MEAN CORPUSCULAR HEMOGLOBIN 31.4 pg (29.0-33.0); MEAN CORPUSCULAR HGB CONC 32.4 g/dl (32.0-37.0); MEAN CORPUSCULAR VOLUME 96.9 fl (82.0-101.0); MEAN PLATELET VOLUME 11.7 fl (7.4-10.4); MONOCYTE # 1.2 10^3/ul (0.3-0.9); MONOCYTES % 21.5 % (0.0-11.0); NEUTROPHIL # 1.2 10^3/ul (1.6-7.5); NEUTROPHILS % 20.4 % (39.0-77.0); PLATELET COUNT 186 10^3/UL (140-415); RED BLOOD COUNT 3.89 10^6/ul (4.20-5.40)
[2017-09-27 07:31] LABS: POSITIVE DIFF @See below
[2017-09-27 07:38] LABS: ALBUMIN 3.3 g/dl (3.3-4.9); ANION GAP 19 (8-16); BLOOD UREA NITROGEN 38 mg/dl (7-20); CALCIUM 8.8 mg/dl (8.4-10.2); CARBON DIOXIDE 27 mmol/L (21-31); CHLORIDE 98 mmol/L (97-110); CREATININE 5.15 mg/dl (0.44-1.00); GLUCOSE 72 mg/dl (70-220); MAGNESIUM 1.7 mg/dl (1.7-2.5); PHOSPHORUS 6.3 mg/dl (2.5-4.9); POTASSIUM 4.5 mmol/L (3.5-5.1); SODIUM 139 mmol/L (135-144)
[2017-09-27 07:40] LABS: VANCOMYCIN,RANDOM 13.8 ug/ml
[2017-09-27] MEDS: SEVELAMER CARBONATE 0.8 GM PKT PO ×3 (08:09→18:16)
[2017-09-27] MEDS: PANTOPRAZOLE (EC) 40 MG TAB PO (08:09)
[2017-09-27] MEDS: MULTIVITAMINS THERAPEUTIC TAB PO (08:09)
[2017-09-27] MEDS: METHADONE (1 MG/1 ML PO SYG) PO (10:50)
[2017-09-27] MEDS: HEPARIN 1000 UNITS/ML 10 ML INJ CATHETER (20:15)
[2017-09-27] MEDS: VANCOMYCIN 1 GM 250 ML IVPB (20:53)
[2017-09-28] MEDS: PANTOPRAZOLE (EC) 40 MG TAB PO (06:12)
[2017-09-28 06:52] LABS: ADD MAN DIFF? NO
[2017-09-28 06:55] LABS: WHITE BLOOD COUNT 5.5 10^3/ul (4.8-10.8)
[2017-09-28 06:55] LABS: BASOPHIL # 0.1 10^3/ul (0.0-0.1); BASOPHILS % 1.4 % (0.0-2.0); EOSINOPHILS % 0.2 % (0.0-7.0); HEMATOCRIT 38.2 % (37.0-47.0); HEMOGLOBIN 12.5 g/dl (12.0-16.0); IMMATURE GRANS #M 0.02 10^3/ul; IMMATURE GRANS % (M) 0.4 %; LYMPHOCYTES # 2.7 10^3/ul (0.8-2.9); LYMPHOCYTES % 48.2 % (15.0-51.0); MEAN CORPUSCULAR HEMOGLOBIN 32.6 pg (29.0-33.0); MEAN CORPUSCULAR HGB CONC 32.7 g/dl (32.0-37.0); MEAN CORPUSCULAR VOLUME 99.7 fl (82.0-101.0); MEAN PLATELET VOLUME 11.6 fl (7.4-10.4); MONOCYTE # 1.3 10^3/ul (0.3-0.9); MONOCYTES % 23.4 % (0.0-11.0); NEUTROPHIL # 1.5 10^3/ul (1.6-7.5); NEUTROPHILS % 26.4 % (39.0-77.0); PLATELET COUNT 198 10^3/UL (140-415); RED BLOOD COUNT 3.83 10^6/ul (4.20-5.40); RED CELL DISTRIBUTION WIDTH 14.8 % (11.5-14.5)
[2017-09-28] MEDS: oxyCODONE 5 MG TAB PO (07:03)
[2017-09-28 07:10] LABS: ALBUMIN 3.4 g/dl (3.3-4.9); ANION GAP 17 (8-16); BLOOD UREA NITROGEN 23 mg/dl (7-20); CALCIUM 8.7 mg/dl (8.4-10.2); CARBON DIOXIDE 30 mmol/L (21-31); CHLORIDE 101 mmol/L (97-110); CREATININE 3.84 mg/dl (0.44-1.00); GLUCOSE 74 mg/dl (70-220); MAGNESIUM 1.7 mg/dl (1.7-2.5); PHOSPHORUS 5.5 mg/dl (2.5-4.9); POTASSIUM 4.5 mmol/L (3.5-5.1); SODIUM 143 mmol/L (135-144)
[2017-09-28] MEDS: METHADONE (1 MG/1 ML PO SYG) PO (09:38)
[2017-09-28] MEDS: SEVELAMER CARBONATE 0.8 GM PKT PO ×3 (09:38→17:50)
[2017-09-28] MEDS: MULTIVITAMINS THERAPEUTIC TAB PO (09:38)
[2017-09-28 09:44] LABS: AMPHETAMINE/METHAMPHETAMINE Negative (NEGATIVE); BARBITURATES Negative (NEGATIVE); BENZODIAZEPINES Negative (NEGATIVE); CANNABINOIDS Negative (NEGATIVE); COCAINE Negative (NEGATIVE); OPIATES Negative (NEGATIVE)
[2017-09-28] MEDS: METOPROLOL 25 MG TAB PO (22:31)
[2017-09-29] MEDS ORDERED: VANCOMYCIN 1 GM 250 ML IVPB (03:00)
[2017-09-29] MEDS: PANTOPRAZOLE (EC) 40 MG TAB PO (05:53)
[2017-09-29 06:22] LABS: ADD MAN DIFF? NO
[2017-09-29 06:32] LABS: BASOPHIL # 0.1 10^3/ul (0.0-0.1); BASOPHILS % 1.3 % (0.0-2.0); EOSINOPHILS % 0.2 % (0.0-7.0); HEMATOCRIT 38.1 % (37.0-47.0); HEMOGLOBIN 12.6 g/dl (12.0-16.0); IMMATURE GRANS #M 0.02 10^3/ul; IMMATURE GRANS % (M) 0.3 %; LYMPHOCYTES # 2.6 10^3/ul (0.8-2.9); LYMPHOCYTES % 43.2 % (15.0-51.0); MEAN CORPUSCULAR HEMOGLOBIN 32.8 pg (29.0-33.0); MEAN CORPUSCULAR HGB CONC 33.1 g/dl (32.0-37.0); MEAN CORPUSCULAR VOLUME 99.2 fl (82.0-101.0); MEAN PLATELET VOLUME 11.3 fl (7.4-10.4); MONOCYTE # 1.1 10^3/ul (0.3-0.9); MONOCYTES % 18.4 % (0.0-11.0); NEUTROPHIL # 2.2 10^3/ul (1.6-7.5); NEUTROPHILS % 36.6 % (39.0-77.0); PLATELET COUNT 182 10^3/UL (140-415); RED BLOOD COUNT 3.84 10^6/ul (4.20-5.40); RED CELL DISTRIBUTION WIDTH 14.7 % (11.5-14.5)
[2017-09-29 06:32] LABS: WHITE BLOOD COUNT 5.9 10^3/ul (4.8-10.8)
[2017-09-29 06:42] LABS: ALBUMIN 3.4 g/dl (3.3-4.9); ANION GAP 20 (8-16); BLOOD UREA NITROGEN 39 mg/dl (7-20); CALCIUM 8.9 mg/dl (8.4-10.2); CARBON DIOXIDE 24 mmol/L (21-31); CHLORIDE 101 mmol/L (97-110); CREATININE 5.42 mg/dl (0.44-1.00); GLUCOSE 79 mg/dl (70-220); MAGNESIUM 1.8 mg/dl (1.7-2.5); POTASSIUM 4.8 mmol/L (3.5-5.1); SODIUM 140 mmol/L (135-144)
[2017-09-29] MEDS: SEVELAMER CARBONATE 0.8 GM PKT PO ×3 (08:39→18:10)
[2017-09-29] MEDS: MULTIVITAMINS THERAPEUTIC TAB PO (08:40)
[2017-09-29] MEDS: METOPROLOL 25 MG TAB PO ×2 (08:41→20:41)
[2017-09-29] MEDS: METHADONE (1 MG/1 ML PO SYG) PO (08:42)
[2017-09-29] MEDS: BISACODYL (EC) 5 MG TAB PO (12:49)
[2017-09-29] MEDS: DOCUSATE SODIUM 100 MG CAP PO (12:49)
[2017-09-29] MEDS: CEFTRIAXONE 500 MG in SOD CHLORIDE 0.9% 50 ML IVPB (23:14)
[2017-09-29] MEDS: morphine LIQ (10 MG/5 ML) CUP PO (23:21)
[2017-09-30] MEDS: PANTOPRAZOLE (EC) 40 MG TAB PO (06:28)
[2017-09-30 07:40] LABS: WHITE BLOOD COUNT 7.3 10^3/ul (4.8-10.8)
[2017-09-30 07:40] LABS: HEMATOCRIT 38.7 % (37.0-47.0); HEMOGLOBIN 12.5 g/dl (12.0-16.0); IMMATURE GRANS #M 0.02 10^3/ul; IMMATURE GRANS % (M) 0.3 %; MEAN CORPUSCULAR HEMOGLOBIN 32.1 pg (29.0-33.0); MEAN CORPUSCULAR HGB CONC 32.3 g/dl (32.0-37.0); MEAN CORPUSCULAR VOLUME 99.5 fl (82.0-101.0); MEAN PLATELET VOLUME 11.5 fl (7.4-10.4); PLATELET COUNT 152 10^3/UL (140-415); RED BLOOD COUNT 3.89 10^6/ul (4.20-5.40); RED CELL DISTRIBUTION WIDTH 14.9 % (11.5-14.5)
[2017-09-30 07:43] LABS: ADD MAN DIFF? YES
[2017-09-30 07:58] LABS: ALBUMIN 3.5 g/dl (3.3-4.9); ANION GAP 22 (8-16); BLOOD UREA NITROGEN 55 mg/dl (7-20); CALCIUM 8.4 mg/dl (8.4-10.2); CARBON DIOXIDE 22 mmol/L (21-31); CHLORIDE 101 mmol/L (97-110); CREATININE 6.92 mg/dl (0.44-1.00); GLUCOSE 96 mg/dl (70-220); MAGNESIUM 1.8 mg/dl (1.7-2.5); PHOSPHORUS 7.7 mg/dl (2.5-4.9); SODIUM 140 mmol/L (135-144)
[2017-09-30 08:04] LABS: POTASSIUM 5.4 mmol/L (3.5-5.1)
[2017-09-30] MEDS: METOPROLOL 25 MG TAB PO ×2 (09:00→21:40)
[2017-09-30] MEDS: MULTIVITAMINS THERAPEUTIC TAB PO (09:17)
[2017-09-30] MEDS: SEVELAMER CARBONATE 0.8 GM PKT PO ×3 (09:17→18:00)
[2017-09-30] MEDS: METHADONE (1 MG/1 ML PO SYG) PO (09:18)
[2017-09-30] MEDS: DOCUSATE SODIUM 100 MG CAP PO (10:30)
[2017-09-30] MEDS: HEPARIN 1000 UNITS/ML 10 ML INJ CATHETER (19:06)
[2017-09-30] MEDS: CEFTRIAXONE 500 MG in SOD CHLORIDE 0.9% 50 ML IVPB (21:40)
[2017-10-01] MEDS: PANTOPRAZOLE (EC) 40 MG TAB PO (06:47)
[2017-10-01 06:52] LABS: ADD MAN DIFF? NO
[2017-10-01 07:13] LABS: WHITE BLOOD COUNT 5.3 10^3/ul (4.8-10.8)
[2017-10-01 07:13] LABS: BASOPHIL # 0.1 10^3/ul (0.0-0.1); BASOPHILS % 1.1 % (0.0-2.0); EOSINOPHILS % 0.2 % (0.0-7.0); HEMATOCRIT 36.3 % (37.0-47.0); HEMOGLOBIN 11.6 g/dl (12.0-16.0); IMMATURE GRANS #M 0 10^3/ul; IMMATURE GRANS % (M) 0 %; LYMPHOCYTES # 2.6 10^3/ul (0.8-2.9); MEAN CORPUSCULAR VOLUME 97.1 fl (82.0-101.0); MEAN PLATELET VOLUME 11.5 fl (7.4-10.4); MONOCYTES % 18.6 % (0.0-11.0); NEUTROPHIL # 1.6 10^3/ul (1.6-7.5); NEUTROPHILS % 30.1 % (39.0-77.0); PLATELET COUNT 146 10^3/UL (140-415); RED BLOOD COUNT 3.74 10^6/ul (4.20-5.40); RED CELL DISTRIBUTION WIDTH 14.6 % (11.5-14.5)
[2017-10-01 07:37] LABS: ALBUMIN 3.5 g/dl (3.3-4.9); ANION GAP 18 (8-16); BLOOD UREA NITROGEN 32 mg/dl (7-20); CALCIUM 8.3 mg/dl (8.4-10.2); CARBON DIOXIDE 27 mmol/L (21-31); CHLORIDE 99 mmol/L (97-110); CREATININE 4.69 mg/dl (0.44-1.00); GLUCOSE 79 mg/dl (70-220); MAGNESIUM 1.7 mg/dl (1.7-2.5); PHOSPHORUS 6.3 mg/dl (2.5-4.9); POTASSIUM 4.3 mmol/L (3.5-5.1); SODIUM 140 mmol/L (135-144)
[2017-10-01] MEDS: SEVELAMER CARBONATE 0.8 GM PKT PO ×3 (08:44→18:11)
[2017-10-01] MEDS: METOPROLOL 25 MG TAB PO ×2 (08:45→20:53)
[2017-10-01] MEDS: MULTIVITAMINS THERAPEUTIC TAB PO (08:48)
[2017-10-01] MEDS: METHADONE (1 MG/1 ML PO SYG) PO (09:08)
[2017-10-01] MEDS: DOCUSATE SODIUM 100 MG CAP PO (20:53)
[2017-10-01] MEDS: CEFTRIAXONE 500 MG in SOD CHLORIDE 0.9% 50 ML IVPB (20:53)
[2017-10-01] MEDS: VANCOMYCIN 1 GM 250 ML IVPB (21:34)
[2017-10-02] MEDS: PANTOPRAZOLE (EC) 40 MG TAB PO (06:10)
[2017-10-02 09:14] LABS: ADD MAN DIFF? NO
[2017-10-02 09:20] LABS: BASOPHIL # 0.1 10^3/ul (0.0-0.1); BASOPHILS % 1.5 % (0.0-2.0); HEMATOCRIT 36.8 % (37.0-47.0); HEMOGLOBIN 12.1 g/dl (12.0-16.0); LYMPHOCYTES # 2.8 10^3/ul (0.8-2.9); LYMPHOCYTES % 51.5 % (15.0-51.0); MEAN CORPUSCULAR HEMOGLOBIN 31.9 pg (29.0-33.0); MEAN CORPUSCULAR HGB CONC 32.9 g/dl (32.0-37.0); MEAN CORPUSCULAR VOLUME 97.1 fl (82.0-101.0); MONOCYTES % 18.2 % (0.0-11.0); NEUTROPHIL # 1.6 10^3/ul (1.6-7.5); NEUTROPHILS % 28.4 % (39.0-77.0); PLATELET COUNT 142 10^3/UL (140-415); RED BLOOD COUNT 3.79 10^6/ul (4.20-5.40); RED CELL DISTRIBUTION WIDTH 14.6 % (11.5-14.5)
[2017-10-02 09:20] LABS: WHITE BLOOD COUNT 5.5 10^3/ul (4.8-10.8)
[2017-10-02] MEDS: SEVELAMER CARBONATE 0.8 GM PKT PO ×3 (09:20→18:33)
[2017-10-02] MEDS: METOPROLOL 25 MG TAB PO ×2 (09:20→21:08)
[2017-10-02] MEDS: MULTIVITAMINS THERAPEUTIC TAB PO (09:20)
[2017-10-02 09:57] LABS: ANION GAP 21 (8-16); BLOOD UREA NITROGEN 43 mg/dl (7-20); CALCIUM 8.2 mg/dl (8.4-10.2); CARBON DIOXIDE 23 mmol/L (21-31); CHLORIDE 98 mmol/L (97-110); CREATININE 6.14 mg/dl (0.44-1.00); GLUCOSE 81 mg/dl (70-220); MAGNESIUM 1.8 mg/dl (1.7-2.5); PHOSPHORUS 7.7 mg/dl (2.5-4.9); POTASSIUM 4.6 mmol/L (3.5-5.1); SODIUM 137 mmol/L (135-144)
[2017-10-02] MEDS: METHADONE (1 MG/1 ML PO SYG) PO (10:13)
[2017-10-02] MEDS: HEPARIN 1000 UNITS/ML 10 ML INJ CATHETER (18:36)
[2017-10-02] MEDS: CEFTRIAXONE 500 MG in SOD CHLORIDE 0.9% 50 ML IVPB (21:09)
[2017-10-03 05:51] LABS: ADD MAN DIFF? NO
[2017-10-03 06:00] LABS: ABNORMAL IP MESSAGE 1; BASOPHIL # 0.1 10^3/ul (0.0-0.1); BASOPHILS % 1.2 % (0.0-2.0); EOSINOPHILS % 0.2 % (0.0-7.0); HEMATOCRIT 36.9 % (37.0-47.0); LYMPHOCYTES # 3.1 10^3/ul (0.8-2.9); LYMPHOCYTES % 61.3 % (15.0-51.0); MEAN CORPUSCULAR HEMOGLOBIN 31.5 pg (29.0-33.0); MEAN CORPUSCULAR HGB CONC 32.5 g/dl (32.0-37.0); MEAN CORPUSCULAR VOLUME 96.9 fl (82.0-101.0); MEAN PLATELET VOLUME 11.7 fl (7.4-10.4); MONOCYTES % 19.4 % (0.0-11.0); NEUTROPHIL # 0.9 10^3/ul (1.6-7.5); NEUTROPHILS % 17.7 % (39.0-77.0); PLATELET COUNT 151 10^3/UL (140-415); RED BLOOD COUNT 3.81 10^6/ul (4.20-5.40); RED CELL DISTRIBUTION WIDTH 14.5 % (11.5-14.5)
[2017-10-03 06:00] LABS: WHITE BLOOD COUNT 5.1 10^3/ul (4.8-10.8)
[2017-10-03 06:07] LABS: POSITIVE DIFF @See below
[2017-10-03] MEDS: PANTOPRAZOLE (EC) 40 MG TAB PO (06:11)
[2017-10-03 06:39] LABS: ANION GAP 19 (8-16); BLOOD UREA NITROGEN 28 mg/dl (7-20); CALCIUM 8.5 mg/dl (8.4-10.2); CARBON DIOXIDE 29 mmol/L (21-31); CHLORIDE 97 mmol/L (97-110); CREATININE 4.43 mg/dl (0.44-1.00); GLUCOSE 64 mg/dl (70-220); MAGNESIUM 1.8 mg/dl (1.7-2.5); PHOSPHORUS 5.8 mg/dl (2.5-4.9); POTASSIUM 4.9 mmol/L (3.5-5.1); SODIUM 140 mmol/L (135-144)
[2017-10-03] MEDS: SEVELAMER CARBONATE 0.8 GM PKT PO ×3 (08:17→17:36)
[2017-10-03] MEDS: MULTIVITAMINS THERAPEUTIC TAB PO (08:17)
[2017-10-03] MEDS: METOPROLOL 25 MG TAB PO ×2 (08:18→21:32)
[2017-10-03] MEDS: METHADONE (1 MG/1 ML PO SYG) PO (10:08)
[2017-10-04] MEDS: PANTOPRAZOLE (EC) 40 MG TAB PO (06:13)
[2017-10-04] MEDS: SEVELAMER CARBONATE 0.8 GM PKT PO ×3 (08:17→17:45)
[2017-10-04] MEDS: METOPROLOL 25 MG TAB PO (08:17)
[2017-10-04] MEDS: MULTIVITAMINS THERAPEUTIC TAB PO (08:17)
[2017-10-04 08:27] LABS: ADD MAN DIFF? NO
[2017-10-04 08:39] LABS: BASOPHIL # 0.1 10^3/ul (0.0-0.1); BASOPHILS % 1.2 % (0.0-2.0); EOSINOPHILS % 0.2 % (0.0-7.0); HEMOGLOBIN 12.4 g/dl (12.0-16.0); LYMPHOCYTES # 3.7 10^3/ul (0.8-2.9); LYMPHOCYTES % 61.2 % (15.0-51.0); MEAN CORPUSCULAR HEMOGLOBIN 31.9 pg (29.0-33.0); MEAN CORPUSCULAR HGB CONC 32.6 g/dl (32.0-37.0); MEAN CORPUSCULAR VOLUME 97.7 fl (82.0-101.0); MEAN PLATELET VOLUME 12.3 fl (7.4-10.4); MONOCYTE # 1.2 10^3/ul (0.3-0.9); MONOCYTES % 19.5 % (0.0-11.0); NEUTROPHIL # 1.1 10^3/ul (1.6-7.5); NEUTROPHILS % 17.7 % (39.0-77.0); PLATELET COUNT 145 10^3/UL (140-415); RED BLOOD COUNT 3.89 10^6/ul (4.20-5.40); RED CELL DISTRIBUTION WIDTH 14.5 % (11.5-14.5)
[2017-10-04 09:06] LABS: ANION GAP 21 (8-16); BLOOD UREA NITROGEN 47 mg/dl (7-20); CALCIUM 8.6 mg/dl (8.4-10.2); CARBON DIOXIDE 24 mmol/L (21-31); CHLORIDE 99 mmol/L (97-110); GLUCOSE 69 mg/dl (70-220); PHOSPHORUS 6.8 mg/dl (2.5-4.9); POTASSIUM 5.5 mmol/L (3.5-5.1); SODIUM 138 mmol/L (135-144)
[2017-10-04] MEDS: METHADONE (1 MG/1 ML PO SYG) PO (09:34)
[2017-10-04] MEDS: HEPARIN 1000 UNITS/ML 10 ML INJ CATHETER (15:20)
[2017-10-04] MEDS: VANCOMYCIN 1 GM (PMX) 250 ML IVPB (16:05)
== END 2017-10-04 19:25 | disposition home health service (06) | DRG 314 ==
LOC: E/R 18:31 → 2NE 09-25 01:26
PROC: 5A1D70Z Performance of Urinary Filtration, Intermittent, Less than 6 Hours Per Day (ICD-10-PCS; principal; 2017-09-25)
DX: T82.7XXA Infection and inflammatory reaction due to other cardiac and vascular devices, implants and grafts, initial encounter (principal); N18.6 End stage renal disease; L03.114 Cellulitis of left upper limb; I12.0 Hypertensive chronic kidney disease with stage 5 chronic kidney disease or end stage renal disease; L02.414 Cutaneous abscess of left upper limb; M06.9 Rheumatoid arthritis, unspecified; K21.9 Gastro-esophageal reflux disease without esophagitis; D63.1 Anemia in chronic kidney disease; T82.858A Stenosis of other vascular prosthetic devices, implants and grafts, initial encounter; Z99.2 Dependence on renal dialysis; Y83.2 Surgical operation with anastomosis, bypass or graft as the cause of abnormal reaction of the patient, or of later complication, without mention of misadventure at the time of the procedure; Y92.89 Other specified places as the place of occurrence of the external cause
CPT/HCPCS: 36415; 71045; 80048; 80053; 80069; 80202; 80307; 82962; 83605; 83735; 84100; 84484; 85025; 85610; 85730; 86706; 87040; 87340; 90935; 93005; 93931; 93971; 99285-25; G0378

== ENCOUNTER 2018-04-28 20:29 | Observation (INO) | payer MEDICARE, OTHER ==
[2018-04-28 23:38] LABS: ADD MAN DIFF? NO
[2018-04-28 23:41] LABS: ABNORMAL IP MESSAGE 1; BASOPHILS % 0.7 % (0.0-2.0); HEMOGLOBIN 11.2 g/dl (12.0-16.0); LYMPHOCYTES # 2.4 10^3/ul (0.8-2.9); LYMPHOCYTES % 54.1 % (15.0-51.0); MEAN CORPUSCULAR HEMOGLOBIN 31.3 pg (29.0-33.0); MEAN CORPUSCULAR HGB CONC 32.9 g/dl (32.0-37.0); MEAN PLATELET VOLUME 10.4 fl (7.4-10.4); MONOCYTE # 1.8 10^3/ul (0.3-0.9); NEUTROPHIL # 0.1 10^3/ul (1.6-7.5); NEUTROPHILS % 3.2 % (39.0-77.0); PLATELET COUNT 296 10^3/UL (140-415); RED BLOOD COUNT 3.58 10^6/ul (4.20-5.40); RED CELL DISTRIBUTION WIDTH 13.7 % (11.5-14.5)
[2018-04-28 23:41] LABS: WHITE BLOOD COUNT 4.4 10^3/ul (4.8-10.8)
[2018-04-28 23:44] LABS: POSITIVE DIFF @See below
[2018-04-29 00:04] LABS: ALBUMIN 3.8 g/dl (3.3-4.9); ALBUMIN/GLOBULIN RATIO 0.84; ALKALINE PHOSPHATASE 186 IU/L (42-121); ANION GAP 19 (5-13); ASPARTATE AMINO TRANSFERASE 20 IU/L (15-46); BLOOD UREA NITROGEN 66 mg/dl (7-20); CALCIUM 9.3 mg/dl (8.4-10.2); CARBON DIOXIDE 27 mmol/L (21-31); CHLORIDE 91 mmol/L (97-110); CREATININE 8.58 mg/dl (0.44-1.00); Estimated GFR 5 mL/min (>60); GLUCOSE 93 mg/dl (70-220); POTASSIUM 5.1 mmol/L (3.5-5.1); SODIUM 137 mmol/L (135-144); TOTAL PROTEIN 8.3 g/dl (6.1-8.1)
[2018-04-29 00:05] LABS: ALANINE AMINOTRANSFERASE < 6 IU/L (13-69)
[2018-04-29 00:16] LABS: B-TYPE NATRIURETIC PEPTIDE 12500 PG/ML (0-125); TROPONIN-I 0.028 ng/ml (0.000-0.120)
[2018-04-29] MEDS: morphine 2 MG INJ IV ×2 (03:35)
[2018-04-29] MEDS: NITROGLYCERIN (SL) 0.4 MG TAB SL ×2 (03:36→03:47)
[2018-04-29] MEDS ORDERED: NACL 0.9% 3 ML SYG IV (04:00)
[2018-04-29] MEDS ORDERED: ALBUTEROL/IPRATROPIUM (NEB) 3 ML AMP HHN (04:00)
[2018-04-29] MEDS ORDERED: NITROGLYCERIN (SL) 0.4 MG TAB SL (04:00)
[2018-04-29] MEDS ORDERED: ONDANSETRON 4 MG INJ IV (04:00)
[2018-04-29] MEDS ORDERED: ACETAMINOPHEN 325 MG TAB PO (04:00)
[2018-04-29] MEDS: PANTOPRAZOLE (EC) 40 MG TAB PO ×2 (05:51)
[2018-04-29] MEDS: oxyCODONE 15 MG TAB PO ×3 (05:55→14:22)
[2018-04-29 06:27] LABS: ADD MAN DIFF? NO
[2018-04-29 06:30] LABS: WHITE BLOOD COUNT 3.8 10^3/ul (4.8-10.8)
[2018-04-29 06:30] LABS: ABNORMAL IP MESSAGE 1; BASOPHILS % 0.8 % (0.0-2.0); HEMATOCRIT 31.3 % (37.0-47.0); HEMOGLOBIN 10.4 g/dl (12.0-16.0); LYMPHOCYTES % 53.9 % (15.0-51.0); MEAN CORPUSCULAR HEMOGLOBIN 31.6 pg (29.0-33.0); MEAN CORPUSCULAR HGB CONC 33.2 g/dl (32.0-37.0); MEAN CORPUSCULAR VOLUME 95.1 fl (82.0-101.0); MEAN PLATELET VOLUME 10.7 fl (7.4-10.4); MONOCYTE # 1.6 10^3/ul (0.3-0.9); MONOCYTES % 41.6 % (0.0-11.0); NEUTROPHIL # 0.1 10^3/ul (1.6-7.5); NEUTROPHILS % 3.4 % (39.0-77.0); PLATELET COUNT 258 10^3/UL (140-415); RED BLOOD COUNT 3.29 10^6/ul (4.20-5.40); RED CELL DISTRIBUTION WIDTH 13.6 % (11.5-14.5)
[2018-04-29 06:39] LABS: POSITIVE DIFF @See below
[2018-04-29 06:58] LABS: ALBUMIN 3.5 g/dl (3.3-4.9); ALBUMIN/GLOBULIN RATIO 0.85; ALKALINE PHOSPHATASE 158 IU/L (42-121); ANION GAP 19 (5-13); ASPARTATE AMINO TRANSFERASE 22 IU/L (15-46); BLOOD UREA NITROGEN 70 mg/dl (7-20); CALCIUM 8.5 mg/dl (8.4-10.2); CARBON DIOXIDE 25 mmol/L (21-31); CHLORIDE 91 mmol/L (97-110); CHOL/HDL RATIO 4.8 RATIO; CHOLESTEROL 121 mg/dl (100-200); CREATININE 8.64 mg/dl (0.44-1.00); Estimated GFR 5 mL/min (>60); GLUCOSE 109 mg/dl (70-220); HDL CHOLESTEROL 25 mg/dl (35-98); LDL CHOLESTEROL,CALCULATED 76 mg/dl; MAGNESIUM 1.9 mg/dl (1.7-2.5); SODIUM 135 mmol/L (135-144); TOTAL PROTEIN 7.6 g/dl (6.1-8.1); TRIGLYCERIDES 99 mg/dl (0-149)
[2018-04-29 06:59] LABS: CREATINE KINASE 38 IU/L (23-200)
[2018-04-29 07:01] LABS: CK INDEX 3.6; CK-MB 1.38 ng/ml (0.0-2.4); TROPONIN-I 0.039 ng/ml (0.000-0.120)
[2018-04-29 07:11] LABS: ALANINE AMINOTRANSFERASE < 6 IU/L (13-69)
[2018-04-29 07:12] LABS: POTASSIUM 5.3 mmol/L (3.5-5.1)
[2018-04-29] MEDS: SEVELAMER CARBONATE 0.8 GM PKT PO ×6 (08:00→18:29)
[2018-04-29] MEDS ORDERED: METHADONE HCL XX (09:00)
[2018-04-29] MEDS: MULTIVITAMINS THERAPEUTIC TAB PO (09:00)
[2018-04-29] MEDS: METOPROLOL 25 MG TAB PO ×2 (09:00→21:00)
[2018-04-29] MEDS: HEPARIN 5,000 UNIT/1 ML VIAL SC ×4 (09:04→21:00)
[2018-04-29 11:05] LABS: CREATINE KINASE 45 IU/L (23-200)
[2018-04-29 11:18] LABS: CK INDEX 2.3; CK-MB 1.02 ng/ml (0.0-2.4); TROPONIN-I 0.042 ng/ml (0.000-0.120)
[2018-04-29 11:55] LABS: HEPATITIS B SURFACE ANTIGEN NEGATIVE (NEGATIVE)
[2018-04-29] MEDS ORDERED: METHADONE HCL 10 MG/ML (1ML) POSYG PO ×3 (15:30→21:00)
[2018-04-29] MEDS: METHADONE (1 MG/ML 5 ML PO UD SYG) PO (17:34)
[2018-04-30] MEDS: oxyCODONE 15 MG TAB PO (06:01)
[2018-04-30] MEDS: PANTOPRAZOLE (EC) 40 MG TAB PO ×2 (06:02)
[2018-04-30 06:04] LABS: ADD MAN DIFF? NO
[2018-04-30 06:08] LABS: WHITE BLOOD COUNT 4.4 10^3/ul (4.8-10.8)
[2018-04-30 06:08] LABS: ABNORMAL IP MESSAGE 1; BASOPHILS % 0.7 % (0.0-2.0); HEMATOCRIT 33.1 % (37.0-47.0); HEMOGLOBIN 10.8 g/dl (12.0-16.0); LYMPHOCYTES # 2.5 10^3/ul (0.8-2.9); LYMPHOCYTES % 57.1 % (15.0-51.0); MEAN CORPUSCULAR HEMOGLOBIN 31.1 pg (29.0-33.0); MEAN CORPUSCULAR HGB CONC 32.6 g/dl (32.0-37.0); MEAN CORPUSCULAR VOLUME 95.4 fl (82.0-101.0); MEAN PLATELET VOLUME 11.5 fl (7.4-10.4); MONOCYTE # 1.6 10^3/ul (0.3-0.9); NEUTROPHIL # 0.3 10^3/ul (1.6-7.5); NEUTROPHILS % 5.7 % (39.0-77.0); PLATELET COUNT 262 10^3/UL (140-415); RED BLOOD COUNT 3.47 10^6/ul (4.20-5.40); RED CELL DISTRIBUTION WIDTH 13.9 % (11.5-14.5)
[2018-04-30 06:24] LABS: POSITIVE DIFF @See below
[2018-04-30 06:25] LABS: MONOCYTES % 36.3 % (0.0-11.0)
[2018-04-30 06:31] LABS: ANION GAP 13 (5-13); BLOOD UREA NITROGEN 33 mg/dl (7-20); CARBON DIOXIDE 30 mmol/L (21-31); CHLORIDE 94 mmol/L (97-110); CREATININE 5.11 mg/dl (0.44-1.00); Estimated GFR 8 mL/min (>60); GLUCOSE 66 mg/dl (70-220); MAGNESIUM 1.9 mg/dl (1.7-2.5); PHOSPHORUS 6.6 mg/dl (2.5-4.9); POTASSIUM 4.9 mmol/L (3.5-5.1); SODIUM 137 mmol/L (135-144)
[2018-04-30] MEDS: SEVELAMER CARBONATE 0.8 GM PKT PO ×4 (08:33→12:00)
[2018-04-30] MEDS ORDERED: METHADONE HCL 10 MG/ML (1ML) POSYG PO (09:00)
[2018-04-30] MEDS: METHADONE (1 MG/ML 5 ML PO UD SYG) PO (09:09)
[2018-04-30] MEDS: MULTIVITAMINS THERAPEUTIC TAB PO (09:09)
[2018-04-30] MEDS: METOPROLOL 25 MG TAB PO (09:09)
[2018-04-30] MEDS: HEPARIN 5,000 UNIT/1 ML VIAL SC ×2 (09:12)
== END 2018-04-30 19:08 | disposition home or self-care (01) ==
LOC: E/R 20:29 → 6WM 04-29 01:35
DX: R07.89 Other chest pain (principal); G89.4 Chronic pain syndrome; I12.0 Hypertensive chronic kidney disease with stage 5 chronic kidney disease or end stage renal disease; N18.6 End stage renal disease; Z99.2 Dependence on renal dialysis; M06.9 Rheumatoid arthritis, unspecified; Z87.891 Personal history of nicotine dependence; E87.5 Hyperkalemia; D64.9 Anemia, unspecified; M89.8X9 Other specified disorders of bone, unspecified site; R60.0 Localized edema; M79.641 Pain in right hand
CPT/HCPCS: 36415; 71045; 73130-RT; 73200; 80048; 80053; 80061; 82550; 82553; 83735; 83880; 84100; 84484; 85025; 87340; 90935; 93005; 93306; 99285-25; G0378

== ENCOUNTER 2018-05-31 19:24 | Emergency (ER) | payer MEDICARE, OTHER | END 2018-06-01 01:26 | disposition home or self-care (01) | LOC: FTE 06-01 01:26 | DX: R22.42 Localized swelling, mass and lump, left lower limb (principal); N18.9 Chronic kidney disease, unspecified; I50.9 Heart failure, unspecified; Z99.2 Dependence on renal dialysis | CPT/HCPCS: 29125; 73110-LT; 99283-25 ==

== ENCOUNTER 2018-07-08 11:11 | Inpatient (IN) | payer MEDICARE, OTHER ==
[2018-07-08] MEDS: KETAMINE HCL (50 MG/ML) 1ml syringe IV ×2 (13:21→14:10)
[2018-07-08 13:47] LABS: ABNORMAL IP MESSAGE 1; HEMOGLOBIN 10.9 g/dl (12.0-16.0); MEAN CORPUSCULAR HEMOGLOBIN 30.5 pg (29.0-33.0); MEAN CORPUSCULAR HGB CONC 32.1 g/dl (32.0-37.0); MEAN CORPUSCULAR VOLUME 95.2 fl (82.0-101.0); MEAN PLATELET VOLUME 10.7 fl (7.4-10.4); PLATELET COUNT 396 10^3/UL (140-415); RED BLOOD COUNT 3.57 10^6/ul (4.20-5.40); RED CELL DISTRIBUTION WIDTH 17.3 % (11.5-14.5)
[2018-07-08 13:47] LABS: WHITE BLOOD COUNT 5.8 10^3/ul (4.8-10.8)
[2018-07-08 13:48] LABS: POSITIVE DIFF @See below
[2018-07-08 13:49] LABS: ADD MAN DIFF? YES
[2018-07-08 14:07] LABS: INR 0.93; PROTIME 12.6 Sec (11.9-14.9)
[2018-07-08] MEDS: ONDANSETRON 4 MG INJ IV (14:09)
[2018-07-08] MEDS: PIPER-TAZO 3.375 GM IV (PMX) 100 ML IVPB (14:10)
[2018-07-08] MEDS: SODIUM CHLORIDE 0.9% 1L BAG IV* ×2 (14:11→14:15)
[2018-07-08 14:14] LABS: ALANINE AMINOTRANSFERASE 8 IU/L (13-69); ALBUMIN 3.6 g/dl (3.3-4.9); ALBUMIN/GLOBULIN RATIO 0.83; ALKALINE PHOSPHATASE 298 IU/L (42-121); ANION GAP 16 (5-13); ASPARTATE AMINO TRANSFERASE 20 IU/L (15-46); BILIRUBIN,INDIRECT 0.1 mg/dl (0-1.1); BILIRUBIN,TOTAL 0.1 mg/dl (0.2-1.3); BLOOD UREA NITROGEN 70 mg/dl (7-20); CARBON DIOXIDE 28 mmol/L (21-31); CHLORIDE 93 mmol/L (97-110); CREATININE 8.61 mg/dl (0.44-1.00); Estimated GFR 5 mL/min (>60); GLUCOSE 87 mg/dl (70-220); POTASSIUM 4.9 mmol/L (3.5-5.1); SODIUM 137 mmol/L (135-144); TOTAL PROTEIN 7.9 g/dl (6.1-8.1)
[2018-07-08 14:26] LABS: C-REACTIVE PROTEIN 22.1 mg/dl (0.0-0.9)
[2018-07-08] MEDS ORDERED: DOCUSATE SODIUM 100 MG CAP PO (14:30)
[2018-07-08] MEDS ORDERED: OXYCODONE/ACETAMINOPHEN (5/325) TAB PO (14:30)
[2018-07-08] MEDS ORDERED: ACETAMINOPHEN 325 MG TAB PO (14:30)
[2018-07-08] MEDS ORDERED: BISACODYL (EC) 5 MG TAB PO (14:30)
[2018-07-08] MEDS ORDERED: VANCOMYCIN IV PER PHARMACY XX (14:30)
[2018-07-08] MEDS ORDERED: ONDANSETRON 4 MG INJ IV ×2 (14:30)
[2018-07-08] MEDS ORDERED: morphine 2 MG INJ IV (14:30)
[2018-07-08] MEDS ORDERED: NACL 0.9% 3 ML SYG IV (14:30)
[2018-07-08 14:35] LABS: ANISOCYTOSIS 2+ (0-0); BAND NEUTROPHILS #M 0.2 10^3/ul (0.0-0.6); BAND NEUTROPHILS % (M) 4 % (0-4); BASOPHIL #M 0.1 10^3/ul (0.0-0.0); BASOPHILS % (M) 2 % (0-2); ERYTHROBLAST% (NRBC) (M) 1 % (0-0); LYMPHOCYTES % (M) 70 % (15-51); MONOCYTE #M 1.3 10^3/ul (0.3-0.9); MONOCYTES % (M) 23 % (0-11); OVALOCYTES 1+ (0-0); PLATELET ESTIMATE NORMAL; POLYCHROMASIA 3+ (0-0); SEG NEUT #M 0.1 10^3/ul (1.6-7.5); SEGMENTED NEUTROPHILS (M) % 1 % (39-77); SMUDGE%M 18 % (0-0)
[2018-07-08 15:00] LABS: ERYTHROCYTE SEDIMENTATION RATE 107 mm/Hr (0-30)
[2018-07-08] MEDS: VANCOMYCIN 1 GM (PMX) 250 ML IVPB (15:35)
[2018-07-08] MEDS: oxyCODONE 15 MG TAB PO (17:16)
[2018-07-08] MEDS: SEVELAMER CARBONATE 800 MG TABLET PO (17:55)
[2018-07-08 17:59] LABS: LACTIC ACID 0.9 mmol/L (0.5-2.0)
[2018-07-08] MEDS ORDERED: PIPER-TAZO 3.375 GM IV (PMX) 100 ML IVPB (18:00)
[2018-07-08 20:33] LABS: LACTIC ACID 0.9 mmol/L (0.5-2.0)
[2018-07-08] MEDS: FERROUS SULFATE (EC) 325 MG TAB PO (20:53)
[2018-07-08] MEDS: PIPER-TAZO 2.25 GM/NS 50 ML IVPB (21:29)
[2018-07-08] MEDS: morphine 4 MG/ML VIAL IV (22:44)
[2018-07-09] MEDS: oxyCODONE 15 MG TAB PO ×2 (01:57→16:58)
[2018-07-09] MEDS: ACETAMINOPHEN 325 MG TAB PO (03:32)
[2018-07-09] MEDS: morphine 4 MG/ML VIAL IV ×4 (04:56→21:48)
[2018-07-09 05:25] LABS: WHITE BLOOD COUNT 4.3 10^3/ul (4.8-10.8)
[2018-07-09 05:25] LABS: ABNORMAL IP MESSAGE 1; HEMATOCRIT 33.3 % (37.0-47.0); HEMOGLOBIN 10.9 g/dl (12.0-16.0); MEAN CORPUSCULAR HEMOGLOBIN 30.4 pg (29.0-33.0); MEAN CORPUSCULAR HGB CONC 32.7 g/dl (32.0-37.0); MEAN PLATELET VOLUME 10.8 fl (7.4-10.4); PLATELET COUNT 396 10^3/UL (140-415); RED BLOOD COUNT 3.58 10^6/ul (4.20-5.40); RED CELL DISTRIBUTION WIDTH 16.7 % (11.5-14.5)
[2018-07-09] MEDS: CEFAZOLIN 1 GM/50 ML (PMX) 50 ML IVPB ×3 (05:35→21:47)
[2018-07-09] MEDS: PANTOPRAZOLE (EC) 40 MG TAB PO (05:35)
[2018-07-09 06:06] LABS: ALBUMIN 3.1 g/dl (3.3-4.9); ALBUMIN/GLOBULIN RATIO 0.83; ALKALINE PHOSPHATASE 237 IU/L (42-121); ANION GAP 16 (5-13); ASPARTATE AMINO TRANSFERASE 15 IU/L (15-46); BILIRUBIN,INDIRECT 0.1 mg/dl (0-1.1); BILIRUBIN,TOTAL 0.1 mg/dl (0.2-1.3); BLOOD UREA NITROGEN 75 mg/dl (7-20); CALCIUM 8.9 mg/dl (8.4-10.2); CARBON DIOXIDE 22 mmol/L (21-31); CHLORIDE 97 mmol/L (97-110); CREATININE 9.27 mg/dl (0.44-1.00); Estimated GFR 4 mL/min (>60); GLUCOSE 81 mg/dl (70-220); MAGNESIUM 1.6 mg/dl (1.7-2.5); POTASSIUM 5.5 mmol/L (3.5-5.1); SODIUM 135 mmol/L (135-144); TOTAL PROTEIN 6.8 g/dl (6.1-8.1)
[2018-07-09 06:08] LABS: POSITIVE DIFF @See below
[2018-07-09 06:09] LABS: ADD MAN DIFF? YES
[2018-07-09 06:10] LABS: ALANINE AMINOTRANSFERASE < 6 IU/L (13-69)
[2018-07-09] MEDS: PIPER-TAZO 2.25 GM/NS 50 ML IVPB (06:26)
[2018-07-09 07:17] LABS: HEMOGLOBIN A1C 4.8 % (0-5.9)
[2018-07-09 07:37] LABS: IMMUNOGLOBULIN A 311 mg/dl (70-400); IMMUNOGLOBULIN G 1576 mg/dl (700-1600); IMMUNOGLOBULIN M 88 mg/dl (40-230)
[2018-07-09 08:23] LABS: HEPATITIS B SURFACE ANTIGEN NEGATIVE (NEGATIVE)
[2018-07-09] MEDS: FERROUS SULFATE (EC) 325 MG TAB PO ×2 (09:26→21:48)
[2018-07-09] MEDS: SEVELAMER CARBONATE 800 MG TABLET PO ×3 (09:26→18:51)
[2018-07-09 09:34] LABS: ANISOCYTOSIS 1+ (0-0); GIANT THROMBO% (M) 1 % (0-0); LYMPHOCYTES % (M) 71 % (15-51); MICROCYTOSIS 1+ (0-0); MONOCYTE #M 0.9 10^3/ul (0.3-0.9); MONOCYTES % (M) 23 % (0-11); PLATELET ESTIMATE NORMAL; POIKILOCYTOSIS 1+ (0-0); POLYCHROMASIA 1+ (0-0); REACTIVE LYMPHOCYTES #M 0.2 10^3/ul (0.0-0.0); REACTIVE LYMPHOCYTES% (M) 5 % (0-0); SEGMENTED NEUTROPHILS (M) % 1 % (39-77); SMUDGE%M 13 % (0-0)
[2018-07-09] MEDS: METHADONE 1 MG/ML (ORAL SOLN) PO (13:09)
[2018-07-09] MEDS ORDERED: EPOETIN ALFA-EPBX (NON-ESRD 10,000 UNIT/ML VIAL SC (17:00)
[2018-07-10] MEDS: morphine 4 MG/ML VIAL IV (03:44)
[2018-07-10 05:09] LABS: ADD MAN DIFF? NO
[2018-07-10 05:13] LABS: ABNORMAL IP MESSAGE 1; BASOPHILS % 0.8 % (0.0-2.0); HEMATOCRIT 31.7 % (37.0-47.0); HEMOGLOBIN 10.2 g/dl (12.0-16.0); LYMPHOCYTES # 3.3 10^3/ul (0.8-2.9); LYMPHOCYTES % 65.7 % (15.0-51.0); MEAN CORPUSCULAR HEMOGLOBIN 30.6 pg (29.0-33.0); MEAN CORPUSCULAR HGB CONC 32.2 g/dl (32.0-37.0); MEAN CORPUSCULAR VOLUME 95.2 fl (82.0-101.0); MEAN PLATELET VOLUME 10.7 fl (7.4-10.4); MONOCYTE # 1.6 10^3/ul (0.3-0.9); MONOCYTES % 31.3 % (0.0-11.0); NEUTROPHIL # 0.1 10^3/ul (1.6-7.5); NEUTROPHILS % 1.8 % (39.0-77.0); PLATELET COUNT 339 10^3/UL (140-415); RED BLOOD COUNT 3.33 10^6/ul (4.20-5.40); RED CELL DISTRIBUTION WIDTH 17.2 % (11.5-14.5)
[2018-07-10 05:22] LABS: POSITIVE DIFF @See below
[2018-07-10 05:40] LABS: VANCOMYCIN,RANDOM 12.9 ug/ml
[2018-07-10 05:50] LABS: ANION GAP 8 (5-13); BLOOD UREA NITROGEN 39 mg/dl (7-20); CALCIUM 8.8 mg/dl (8.4-10.2); CARBON DIOXIDE 29 mmol/L (21-31); CHLORIDE 101 mmol/L (97-110); CREATININE 5.64 mg/dl (0.44-1.00); Estimated GFR 8 mL/min (>60); GLUCOSE 106 mg/dl (70-220); MAGNESIUM 1.7 mg/dl (1.7-2.5); PHOSPHORUS 4.8 mg/dl (2.5-4.9); POTASSIUM 4.5 mmol/L (3.5-5.1); SODIUM 138 mmol/L (135-144)
[2018-07-10] MEDS: CEFAZOLIN 1 GM/50 ML (PMX) 50 ML IVPB ×3 (06:10→21:46)
[2018-07-10] MEDS: PANTOPRAZOLE (EC) 40 MG TAB PO (06:10)
[2018-07-10] MEDS: morphine 2 MG INJ IV ×2 (06:23→19:45)
[2018-07-10] MEDS: SEVELAMER CARBONATE 800 MG TABLET PO ×3 (07:50→18:31)
[2018-07-10] MEDS: FERROUS SULFATE (EC) 325 MG TAB PO ×2 (11:15→20:35)
[2018-07-10] MEDS: METHADONE 1 MG/ML (ORAL SOLN) PO (11:16)
[2018-07-10] MEDS: VANCOMYCIN 1 GM 250 ML IVPB (16:24)
[2018-07-10] MEDS: clonAZEPAM 0.5 MG TAB PO (20:35)
[2018-07-10] MEDS: ACETAMINOPHEN 325 MG TAB PO (23:08)
[2018-07-11] MEDS: morphine 2 MG INJ IV ×2 (03:09→20:07)
[2018-07-11] MEDS: oxyCODONE 15 MG TAB PO ×2 (04:46→23:11)
[2018-07-11] MEDS ORDERED: HYDROmorphONE 1 MG/ML SYG IV (04:52)
[2018-07-11 05:37] LABS: ADD MAN DIFF? NO
[2018-07-11 05:47] LABS: ABNORMAL IP MESSAGE 1; BASOPHILS % 0.6 % (0.0-2.0); HEMATOCRIT 30.9 % (37.0-47.0); HEMOGLOBIN 9.8 g/dl (12.0-16.0); LYMPHOCYTES # 3.4 10^3/ul (0.8-2.9); LYMPHOCYTES % 68.7 % (15.0-51.0); MEAN CORPUSCULAR HEMOGLOBIN 30.1 pg (29.0-33.0); MEAN CORPUSCULAR HGB CONC 31.7 g/dl (32.0-37.0); MEAN CORPUSCULAR VOLUME 94.8 fl (82.0-101.0); MEAN PLATELET VOLUME 11.3 fl (7.4-10.4); MONOCYTE # 1.3 10^3/ul (0.3-0.9); MONOCYTES % 25.9 % (0.0-11.0); NEUTROPHIL # 0.2 10^3/ul (1.6-7.5); NEUTROPHILS % 4.2 % (39.0-77.0); PLATELET COUNT 371 10^3/UL (140-415); RED BLOOD COUNT 3.26 10^6/ul (4.20-5.40); RED CELL DISTRIBUTION WIDTH 17.2 % (11.5-14.5)
[2018-07-11 05:49] LABS: POSITIVE DIFF @See below
[2018-07-11 06:06] LABS: IMMUNOGLOBULIN E 587 kU/L (<OR=114)
[2018-07-11 06:11] LABS: ANION GAP 11 (5-13); BLOOD UREA NITROGEN 51 mg/dl (7-20); CALCIUM 8.9 mg/dl (8.4-10.2); CARBON DIOXIDE 26 mmol/L (21-31); CHLORIDE 101 mmol/L (97-110); CREATININE 7.47 mg/dl (0.44-1.00); Estimated GFR 5 mL/min (>60); GLUCOSE 90 mg/dl (70-220); MAGNESIUM 1.7 mg/dl (1.7-2.5); PHOSPHORUS 4.9 mg/dl (2.5-4.9); SODIUM 138 mmol/L (135-144)
[2018-07-11] MEDS: PANTOPRAZOLE (EC) 40 MG TAB PO (06:14)
[2018-07-11] MEDS: CEFAZOLIN 1 GM/50 ML (PMX) 50 ML IVPB ×3 (06:15→20:03)
[2018-07-11] MEDS ORDERED: IODIXANOL LOCM 100 ML BTL (07:06)
[2018-07-11] MEDS ORDERED: HEPARIN 1000 UNITS/NS (A-LINE) 1,000 ML (07:06)
[2018-07-11] MEDS ORDERED: FENTAnyl 50 MCG/ML VIAL (07:06)
[2018-07-11] MEDS ORDERED: MIDAZOLAM 1 MG/ML 2 ML INJ (07:06)
[2018-07-11] MEDS ORDERED: HEPARIN 1000 UNITS/ML 10 ML INJ ×2 (07:06→07:52)
[2018-07-11] MEDS ORDERED: LIDOCAINE 1% (MDV) 20 ML INJ (07:06)
[2018-07-11] MEDS: SEVELAMER CARBONATE 800 MG TABLET PO ×3 (07:50→17:52)
[2018-07-11] MEDS ORDERED: SOD CHLORIDE 0.9% 500 ML (07:53)
[2018-07-11] MEDS: FERROUS SULFATE (EC) 325 MG TAB PO ×2 (11:04→20:03)
[2018-07-11] MEDS: METHADONE 1 MG/ML (ORAL SOLN) PO (11:05)
[2018-07-11] MEDS: clonAZEPAM 0.5 MG TAB PO (20:48)
[2018-07-11 21:58] LABS: IMMUNOGLOBULIN D 19 mg/L (<179)
[2018-07-12 05:44] LABS: ABNORMAL IP MESSAGE 1; HEMATOCRIT 30.7 % (37.0-47.0); HEMOGLOBIN 9.8 g/dl (12.0-16.0); MEAN CORPUSCULAR HEMOGLOBIN 30.3 pg (29.0-33.0); MEAN CORPUSCULAR HGB CONC 31.9 g/dl (32.0-37.0); MEAN PLATELET VOLUME 11.2 fl (7.4-10.4); PLATELET COUNT 359 10^3/UL (140-415); RED BLOOD COUNT 3.23 10^6/ul (4.20-5.40); RED CELL DISTRIBUTION WIDTH 17.1 % (11.5-14.5)
[2018-07-12 05:44] LABS: WHITE BLOOD COUNT 4.2 10^3/ul (4.8-10.8)
[2018-07-12] MEDS: CEFAZOLIN 1 GM/50 ML (PMX) 50 ML IVPB (05:50)
[2018-07-12] MEDS: PANTOPRAZOLE (EC) 40 MG TAB PO (05:50)
[2018-07-12 06:01] LABS: ADD MAN DIFF? YES; POSITIVE DIFF @See below
[2018-07-12 06:16] LABS: VANCOMYCIN,RANDOM 19.3 ug/ml
[2018-07-12 06:45] LABS: ANION GAP 7 (5-13); BLOOD UREA NITROGEN 31 mg/dl (7-20); CALCIUM 8.6 mg/dl (8.4-10.2); CARBON DIOXIDE 30 mmol/L (21-31); CHLORIDE 98 mmol/L (97-110); CREATININE 4.79 mg/dl (0.44-1.00); Estimated GFR 9 mL/min (>60); GLUCOSE 84 mg/dl (70-220); MAGNESIUM 1.7 mg/dl (1.7-2.5); PHOSPHORUS 4.2 mg/dl (2.5-4.9); POTASSIUM 4.5 mmol/L (3.5-5.1); SODIUM 135 mmol/L (135-144)
[2018-07-12 07:49] LABS: BAND NEUTROPHILS #M 0.1 10^3/ul (0.0-0.6); BAND NEUTROPHILS % (M) 4 % (0-4); BASOPHILS % (M) 2 % (0-2); GIANT THROMBO% (M) 8 % (0-0); LYMPHOCYTES #M 2.8 10^3/ul (0.8-2.9); LYMPHOCYTES % (M) 67 % (15-51); MONOCYTE #M 0.6 10^3/ul (0.3-0.9); MONOCYTES % (M) 15 % (0-11); PROMYELOCYTES % (M) 1 % (0-0); REACTIVE LYMPHOCYTES #M 0.3 10^3/ul (0.0-0.0); REACTIVE LYMPHOCYTES% (M) 8 % (0-0); SEG NEUT #M 0.1 10^3/ul (1.6-7.5); SEGMENTED NEUTROPHILS (M) % 3 % (39-77); SMUDGE%M 36 % (0-0)
[2018-07-12] MEDS: FERROUS SULFATE (EC) 325 MG TAB PO ×2 (09:00→20:36)
[2018-07-12] MEDS: SEVELAMER CARBONATE 800 MG TABLET PO ×3 (09:01→17:50)
[2018-07-12] MEDS: METHADONE 1 MG/ML (ORAL SOLN) PO (09:04)
[2018-07-12] MEDS: morphine 2 MG INJ IV ×2 (12:46→19:00)
[2018-07-13 05:20] LABS: ADD MAN DIFF? NO
[2018-07-13] MEDS: PANTOPRAZOLE (EC) 40 MG TAB PO (05:26)
[2018-07-13] MEDS: CEFAZOLIN 1 GM/50 ML (PMX) 50 ML IVPB (05:26)
[2018-07-13] MEDS: oxyCODONE 15 MG TAB PO (05:30)
[2018-07-13 05:42] LABS: WHITE BLOOD COUNT 5.1 10^3/ul (4.8-10.8)
[2018-07-13 05:42] LABS: ABNORMAL IP MESSAGE 1; BASOPHILS % 0.6 % (0.0-2.0); HEMATOCRIT 31.6 % (37.0-47.0); HEMOGLOBIN 10.1 g/dl (12.0-16.0); LYMPHOCYTES # 3.5 10^3/ul (0.8-2.9); LYMPHOCYTES % 67.4 % (15.0-51.0); MEAN CORPUSCULAR HEMOGLOBIN 30.2 pg (29.0-33.0); MEAN CORPUSCULAR VOLUME 94.6 fl (82.0-101.0); MEAN PLATELET VOLUME 11.1 fl (7.4-10.4); MONOCYTE # 1.2 10^3/ul (0.3-0.9); MONOCYTES % 23.8 % (0.0-11.0); NEUTROPHIL # 0.4 10^3/ul (1.6-7.5); NEUTROPHILS % 7.6 % (39.0-77.0); PLATELET COUNT 333 10^3/UL (140-415); RED BLOOD COUNT 3.34 10^6/ul (4.20-5.40)
[2018-07-13 05:57] LABS: POSITIVE DIFF @See below
[2018-07-13 06:02] LABS: PHOSPHORUS 4.1 mg/dl (2.5-4.9)
[2018-07-13 06:02] LABS: MAGNESIUM 1.8 mg/dl (1.7-2.5)
[2018-07-13 06:07] LABS: ANION GAP 10 (5-13); BLOOD UREA NITROGEN 53 mg/dl (7-20); CALCIUM 8.5 mg/dl (8.4-10.2); CARBON DIOXIDE 28 mmol/L (21-31); CHLORIDE 97 mmol/L (97-110); CREATININE 6.13 mg/dl (0.44-1.00); Estimated GFR 7 mL/min (>60); GLUCOSE 94 mg/dl (70-220); POTASSIUM 5.1 mmol/L (3.5-5.1); SODIUM 135 mmol/L (135-144)
[2018-07-13 08:45] LABS: ANISOCYTOSIS 2+ (0-0); BAND NEUTROPHILS % (M) 1 % (0-4); EOSINOPHILS % (M) 1 % (0-7); HYPOCHROMASIA 1+ (0-0); LYMPHOCYTES #M 3.9 10^3/ul (0.8-2.9); LYMPHOCYTES % (M) 77 % (15-51); MONOCYTE #M 0.6 10^3/ul (0.3-0.9); MONOCYTES % (M) 12 % (0-11); PLATELET ESTIMATE NORMAL; POIKILOCYTOSIS 1+ (0-0); POLYCHROMASIA 1+ (0-0); SEG NEUT #M 0.5 10^3/ul (1.6-7.5); SEGMENTED NEUTROPHILS (M) % 9 % (39-77); SMUDGE%M 12 % (0-0)
[2018-07-13] MEDS: FERROUS SULFATE (EC) 325 MG TAB PO (08:59)
[2018-07-13] MEDS: SEVELAMER CARBONATE 800 MG TABLET PO ×3 (08:59→18:24)
[2018-07-13] MEDS: METHADONE 1 MG/ML (ORAL SOLN) PO ×2 (09:00→10:35)
[2018-07-13] MEDS: VANCOMYCIN 750 MG (PMX) 250 ML IVPB (14:15)
== END 2018-07-13 20:25 | disposition home or self-care (01) | DRG 252 ==
LOC: E/R 11:11 → MS1 14:26
PROC: 03763ZZ Dilation of Left Axillary Artery, Percutaneous Approach (ICD-10-PCS; principal; 2018-07-11 07:18)
PROC: 5A1D70Z Performance of Urinary Filtration, Intermittent, Less than 6 Hours Per Day (ICD-10-PCS; 2018-07-11 07:18)
DX: T82.858A Stenosis of other vascular prosthetic devices, implants and grafts, initial encounter (principal); K85.90 Acute pancreatitis without necrosis or infection, unspecified; N18.6 End stage renal disease; L03.114 Cellulitis of left upper limb; G93.40 Encephalopathy, unspecified; I13.0 Hypertensive heart and chronic kidney disease with heart failure and stage 1 through stage 4 chronic kidney disease, or unspecified chronic kidney disease; R65.10 Systemic inflammatory response syndrome (SIRS) of non-infectious origin without acute organ dysfunction; K50.90 Crohn's disease, unspecified, without complications; F11.20 Opioid dependence, uncomplicated; C91.11 Chronic lymphocytic leukemia of B-cell type in remission; I50.9 Heart failure, unspecified; E87.5 Hyperkalemia; Z99.2 Dependence on renal dialysis; M06.9 Rheumatoid arthritis, unspecified; K21.9 Gastro-esophageal reflux disease without esophagitis; F41.9 Anxiety disorder, unspecified; D50.9 Iron deficiency anemia, unspecified; D63.1 Anemia in chronic kidney disease; G89.29 Other chronic pain; M25.551 Pain in right hip
CPT/HCPCS: 36902; 71045; 72192; 73090; 73110-LT; 73120; 73510; 80048; 80053; 80202; 82784; 82785; 83036; 83605; 83735; 84100; 85025; 85610; 85651; 85730; 86140; 87040-91; 87340; 90935; 93931; 93971; 96374; 96375; 99285-25

== ENCOUNTER 2018-07-21 16:15 | Inpatient (IN) | payer MEDICARE, OTHER ==
[2018-07-21 18:20] LABS: ABNORMAL IP MESSAGE 1; HEMATOCRIT 35.7 % (37.0-47.0); MEAN CORPUSCULAR HEMOGLOBIN 30.2 pg (29.0-33.0); MEAN CORPUSCULAR HGB CONC 30.8 g/dl (32.0-37.0); MEAN CORPUSCULAR VOLUME 98.1 fl (82.0-101.0); MEAN PLATELET VOLUME 11.4 fl (7.4-10.4); PLATELET COUNT 501 10^3/UL (140-415); RED BLOOD COUNT 3.64 10^6/ul (4.20-5.40); RED CELL DISTRIBUTION WIDTH 17.9 % (11.5-14.5)
[2018-07-21 18:20] LABS: WHITE BLOOD COUNT 8.8 10^3/ul (4.8-10.8)
[2018-07-21 18:24] LABS: ADD MAN DIFF? YES; POSITIVE DIFF @See below
[2018-07-21 18:37] LABS: ANION GAP 15 (5-13); BLOOD UREA NITROGEN 78 mg/dl (7-20); CALCIUM 8.8 mg/dl (8.4-10.2); CARBON DIOXIDE 21 mmol/L (21-31); CHLORIDE 101 mmol/L (97-110); CREATININE 8.15 mg/dl (0.44-1.00); Estimated GFR 5 mL/min (>60); GLUCOSE 77 mg/dl (70-220); SODIUM 137 mmol/L (135-144)
[2018-07-21 18:43] LABS: POTASSIUM 6.6 mmol/L (3.5-5.1)
[2018-07-21 19:30] LABS: BAND NEUTROPHILS #M 0.8 10^3/ul (0.0-0.6); BAND NEUTROPHILS % (M) 10 % (0-4); BASOPHIL #M 0.1 10^3/ul (0.0-0.0); BASOPHILS % (M) 2 % (0-2); GIANT THROMBO% (M) 29 % (0-0); LYMPHOCYTES #M 5.6 10^3/ul (0.8-2.9); LYMPHOCYTES % (M) 64 % (15-51); METAMYELOCYTES %M 1 % (0-0); MONOCYTE #M 0.2 10^3/ul (0.3-0.9); MONOCYTES % (M) 3 % (0-11); PLATELET ESTIMATE NORMAL; REACTIVE LYMPHOCYTES #M 1.4 10^3/ul (0.0-0.0); REACTIVE LYMPHOCYTES% (M) 16 % (0-0); SEG NEUT #M 0.4 10^3/ul (1.6-7.5); SEGMENTED NEUTROPHILS (M) % 4 % (39-77); SMUDGE%M 65 % (0-0)
[2018-07-21] MEDS ORDERED: DEXTROSE 50% 50 ML SYRINGE IV (20:30)
[2018-07-21] MEDS: DEXTROSE 50% 50 ML SYRINGE IV (20:45)
[2018-07-21] MEDS: CEFTRIAXONE 1 GM/50 ML (PMX) 50 ML IVPB (20:46)
[2018-07-21] MEDS: VANCOMYCIN 1 GM (PMX) 250 ML IVPB (20:46)
[2018-07-21] MEDS: INSULIN REGULAR, HUMAN 100 UNIT/1 ML 3ML VIAL IVP (20:52)
[2018-07-21] MEDS: ALBUTEROL 0.5% (NEB) 2.5 MG/0.5 ML AMP INH (20:53)
[2018-07-21] MEDS: SODIUM POLYSTYRENE 15 GM KIT (POWDER + SORBITOL) PO (20:53)
[2018-07-21] MEDS ORDERED: ALBUTEROL/IPRATROPIUM (NEB) 3 ML AMP HHN (21:30)
[2018-07-21] MEDS ORDERED: NITROGLYCERIN (SL) 0.4 MG TAB SL (21:30)
[2018-07-21] MEDS ORDERED: hydrALAzine 20 MG INJ IV (21:30)
[2018-07-21] MEDS ORDERED: MAGNESIUM HYDROXIDE 30ML CUP PO (21:30)
[2018-07-21] MEDS ORDERED: clonAZEPAM 0.5 MG TAB PO (21:30)
[2018-07-21] MEDS ORDERED: VANCOMYCIN IV PER PHARMACY XX (21:30)
[2018-07-21] MEDS ORDERED: ONDANSETRON 4 MG INJ IV (21:30)
[2018-07-21] MEDS ORDERED: NACL 0.9% 3 ML SYG IV (21:30)
[2018-07-21] MEDS ORDERED: ACETAMINOPHEN 325 MG TAB PO (21:30)
[2018-07-21] MEDS ORDERED: LORAZEPAM 2 MG INJ IV (21:30)
[2018-07-21] MEDS ORDERED: DOCUSATE SODIUM 100 MG CAP PO (21:30)
[2018-07-21 21:42] LABS: PROTIME 13.3 Sec (11.9-14.9)
[2018-07-21] MEDS ORDERED: CEFAZOLIN 1 GM/50 ML (PMX) 50 ML IVPB (22:00)
[2018-07-21 22:02] LABS: FREE T4 (FREE THYROXINE) 1.09 ng/dl (0.78-2.44)
[2018-07-22] MEDS: morphine 2 MG INJ IV ×3 (01:01→06:23)
[2018-07-22] MEDS: PANTOPRAZOLE (EC) 40 MG TAB PO (05:31)
[2018-07-22 05:56] LABS: ADD MAN DIFF? NO
[2018-07-22 06:08] LABS: ABNORMAL IP MESSAGE 1; HEMATOCRIT 29.9 % (37.0-47.0); HEMOGLOBIN 9.7 g/dl (12.0-16.0); MEAN CORPUSCULAR HEMOGLOBIN 30.7 pg (29.0-33.0); MEAN CORPUSCULAR HGB CONC 32.4 g/dl (32.0-37.0); MEAN CORPUSCULAR VOLUME 94.6 fl (82.0-101.0); MEAN PLATELET VOLUME 11.8 fl (7.4-10.4); PLATELET COUNT 475 10^3/UL (140-415); RED BLOOD COUNT 3.16 10^6/ul (4.20-5.40); RED CELL DISTRIBUTION WIDTH 17.6 % (11.5-14.5)
[2018-07-22 06:08] LABS: WHITE BLOOD COUNT 9.3 10^3/ul (4.8-10.8)
[2018-07-22 06:12] LABS: POSITIVE DIFF @See below
[2018-07-22 06:46] LABS: ANION GAP 15 (5-13); BLOOD UREA NITROGEN 85 mg/dl (7-20); CALCIUM 8.3 mg/dl (8.4-10.2); CARBON DIOXIDE 23 mmol/L (21-31); CHLORIDE 101 mmol/L (97-110); Estimated GFR 5 mL/min (>60); GLUCOSE 60 mg/dl (70-220); MAGNESIUM 1.7 mg/dl (1.7-2.5); PHOSPHORUS 6.3 mg/dl (2.5-4.9); SODIUM 139 mmol/L (135-144)
[2018-07-22 06:50] LABS: CHOL/HDL RATIO 3.7 RATIO; HDL CHOLESTEROL 28 mg/dl (35-98); LDL CHOLESTEROL,CALCULATED 55 mg/dl; TRIGLYCERIDES 114 mg/dl (0-149)
[2018-07-22 06:50] LABS: CHOLESTEROL 106 mg/dl (100-200)
[2018-07-22 07:01] LABS: THYROID STIMULATING HORMONE 0.304 MIU/L (0.465-4.680)
[2018-07-22 07:13] LABS: POTASSIUM 6.7 mmol/L (3.5-5.1)
[2018-07-22 07:13] LABS: HEMOGLOBIN A1C 5.1 % (0-5.9)
[2018-07-22] MEDS: SODIUM POLYSTYRENE 15 GM KIT (POWDER + SORBITOL) PO (08:00)
[2018-07-22] MEDS: FERROUS SULFATE (EC) 325 MG TAB PO ×2 (08:59→21:30)
[2018-07-22] MEDS ORDERED: NON-FORMULARY/PATIENT OWN MED (Omeprazole* 20 MG) PO (09:00)
[2018-07-22] MEDS: HYDROCODONE/APAP (5/325) TAB PO ×2 (09:00→13:37)
[2018-07-22] MEDS: CALCIUM GLUCONATE 10% 2 GM in DEXTROSE 5% 100 ML IVPB (09:00)
[2018-07-22] MEDS: SEVELAMER CARBONATE 0.8 GM PKT PO ×3 (09:01→18:00)
[2018-07-22] MEDS: HEPARIN 5,000 UNIT/1 ML VIAL SC ×2 (09:02→21:34)
[2018-07-22 10:05] LABS: ANISOCYTOSIS 2+ (0-0); BASOPHIL #M 0.1 10^3/ul (0.0-0.0); BASOPHILS % (M) 2 % (0-2); BURR CELLS 1+ (0-0); GIANT THROMBO% (M) 4 % (0-0); LYMPHOCYTES #M 5.4 10^3/ul (0.8-2.9); LYMPHOCYTES % (M) 59 % (15-51); MONOCYTE #M 1.8 10^3/ul (0.3-0.9); MONOCYTES % (M) 20 % (0-11); OVALOCYTES 1+ (0-0); PLATELET ESTIMATE NORMAL; POIKILOCYTOSIS 1+ (0-0); POLYCHROMASIA 1+ (0-0); REACTIVE LYMPHOCYTES #M 1.7 10^3/ul (0.0-0.0); REACTIVE LYMPHOCYTES% (M) 19 % (0-0); SMUDGE%M 10 % (0-0); TARGET CELLS 1+ (0-0)
[2018-07-22 10:35] LABS: POTASSIUM 6.2 mmol/L (3.5-5.1)
[2018-07-22] MEDS ORDERED: CEFAZOLIN 1 GM/50 ML (PMX) 50 ML IVPB (20:00)
[2018-07-23] MEDS: HYDROCODONE/APAP (5/325) TAB PO ×2 (03:42→12:39)
[2018-07-23 05:53] LABS: ABNORMAL IP MESSAGE 1; HEMATOCRIT 31.2 % (37.0-47.0); HEMOGLOBIN 9.8 g/dl (12.0-16.0); MEAN CORPUSCULAR HEMOGLOBIN 29.6 pg (29.0-33.0); MEAN CORPUSCULAR HGB CONC 31.4 g/dl (32.0-37.0); MEAN CORPUSCULAR VOLUME 94.3 fl (82.0-101.0); MEAN PLATELET VOLUME 11.1 fl (7.4-10.4); PLATELET COUNT 435 10^3/UL (140-415); RED BLOOD COUNT 3.31 10^6/ul (4.20-5.40); RED CELL DISTRIBUTION WIDTH 17.8 % (11.5-14.5)
[2018-07-23 05:53] LABS: WHITE BLOOD COUNT 6.4 10^3/ul (4.8-10.8)
[2018-07-23 06:09] LABS: POSITIVE DIFF @See below
[2018-07-23 06:19] LABS: ADD MAN DIFF? YES
[2018-07-23 06:23] LABS: ANION GAP 9 (5-13); BLOOD UREA NITROGEN 46 mg/dl (7-20); CALCIUM 8.2 mg/dl (8.4-10.2); CARBON DIOXIDE 30 mmol/L (21-31); CHLORIDE 96 mmol/L (97-110); CREATININE 5.18 mg/dl (0.44-1.00); Estimated GFR 8 mL/min (>60); GLUCOSE 88 mg/dl (70-220); POTASSIUM 4.9 mmol/L (3.5-5.1); SODIUM 135 mmol/L (135-144)
[2018-07-23 07:51] LABS: ANISOCYTOSIS 1+ (0-0); BASOPHILS % (M) 1 % (0-2); GIANT THROMBO% (M) 1 % (0-0); HYPOCHROMASIA 1+ (0-0); LYMPHOCYTES #M 4.5 10^3/ul (0.8-2.9); LYMPHOCYTES % (M) 71 % (15-51); MONOCYTE #M 1.6 10^3/ul (0.3-0.9); MONOCYTES % (M) 26 % (0-11); MYELOCYTES % (M) 1 % (0-0); OVALOCYTES 1+ (0-0); PLATELET ESTIMATE NORMAL; POLYCHROMASIA 1+ (0-0); SEGMENTED NEUTROPHILS (M) % 1 % (39-77); SMUDGE%M 16 % (0-0); TARGET CELLS 1+ (0-0)
[2018-07-23] MEDS: SEVELAMER CARBONATE 0.8 GM PKT PO ×2 (08:13→12:29)
[2018-07-23] MEDS: HEPARIN 5,000 UNIT/1 ML VIAL SC (08:15)
[2018-07-23] MEDS: FERROUS SULFATE (EC) 325 MG TAB PO (08:15)
[2018-07-23] MEDS: morphine 2 MG INJ IV ×2 (10:12→14:20)
[2018-07-25] MEDS ORDERED: VANCOMYCIN 750 MG (PMX) 250 ML IVPB (21:00)
== END 2018-07-23 16:00 | disposition home or self-care (01) | DRG 602 ==
LOC: E/R 16:15 → PP2 07-22 18:28 → 6WM 21:10
PROC: 5A1D70Z Performance of Urinary Filtration, Intermittent, Less than 6 Hours Per Day (ICD-10-PCS; principal; 2018-07-22)
DX: L03.114 Cellulitis of left upper limb (principal); N18.6 End stage renal disease; I13.2 Hypertensive heart and chronic kidney disease with heart failure and with stage 5 chronic kidney disease, or end stage renal disease; F11.20 Opioid dependence, uncomplicated; M79.622 Pain in left upper arm; E87.5 Hyperkalemia; I50.9 Heart failure, unspecified; Z99.2 Dependence on renal dialysis; D63.1 Anemia in chronic kidney disease; G89.4 Chronic pain syndrome; K21.9 Gastro-esophageal reflux disease without esophagitis; F41.9 Anxiety disorder, unspecified; D70.9 Neutropenia, unspecified; M79.89 Other specified soft tissue disorders
CPT/HCPCS: 36415; 71045; 80048; 80061; 82962; 83036; 83735; 84100; 84132; 84439; 84443; 85025; 85610; 85730; 87040-91; 87081; 90935; 93005; 93971; 94640; 94664; 96365; 96368; 96375; 97161; 99285-25